=== PATIENT | female | born 1945 | race Caucasian/White ===

== ENCOUNTER 2018-05-30 22:01 | Inpatient (IN) ==
[2018-05-31] MEDS ORDERED: Acetaminophen 325 MG TABLET PO PRN (00:39)
[2018-05-31] MEDS ORDERED: Naloxone 0.4 MG/ML INJ IVP PRN (00:39)
[2018-05-31] MEDS ORDERED: Aspirin 325 MG TABLET PO ONE (00:47)
[2018-05-31] MEDS ORDERED: Furosemide 40 MG/4 ML VIAL IVP SCH (01:00)
[2018-05-31] MEDS: OXYCODONE Oral CONC 10 MG/0.5 ML ORAL.SYG SL PRN ×3 (01:12→21:37)
--- NOTE | 2018-05-31 01:21 | Internal Med History&Physical ---
Date of Encounter: 05/31/18 Time of Encounter: 01:04 Internal Medicine - H&P: HPI Chief complaint: Lower extremity edema/shortness of breath History of present illness: Ms. Moody is a 73 year old female with no reported past medical history who initially presented to [facility] due to lower extremity edema. Patient reports worsening lower extremity edema over the past week and a half which she states has never happened to her before. The swelling is primarily in her legs bilaterally. Patient otherwise attests that she is "healthy as a rock". She reports some improvement with elevation. Patient denies any previous history of heart disease. She does report some shortness of breath. Patient currently sleeps on one pillow but states that she does get a little short of breath and anxious when she lies down flat. She does report dyspnea with exertion. She is not on oxygen at home. With regard to her diet she states that she cannot eat food without salt. Patient denies any chest pain, fever, chills or cough. Denies any recent illness. Patient reports she does not take any medications except for aspirin occasionally. She has a significant past smoking history, having smoked a pack and a half for approximately 50 years. She states that she quit for about 11 years and then picked up smoking again 6 months ago. Patient denies any family history of heart disease. On arrival to [facility], patient was reportedly saturating in the mid 70s on room air. She was placed on 2 L nasal cannula with rapid improvement into the low 90s. Labs were notable for a normal white count with elevated troponin of 0.34. She was also found to have an elevated d-dimer of 747 and BNP of 1787. Chest x-ray showed enlarged cardiac silhouette No reports of fracture. CTA was recommended however patient refused due to apprehension with getting needlesticks. On my assessment patient was hemodynamically stable saturating in the mid 90s on 2 L, but would desaturate with conversation. She has notable bilateral lower extremity edema up to the distal thighs bilaterally. Past Med Surg Social Fam HX - Past Medical History Medical history: other Additional medical history: COPD Psychiatric history: anxiety - Past Surgical History Surgical History: other Additional surgical history: Adnoidectomy, Tonsilectomy - Social History Smoking Status: Current every day smoker Packs per day: 1 Smokeless Tobacco Status: No Alcohol use: none Drug use: none Internal Medicine - H&P: Meds Oxycodone HCl/Acetaminophen [Percocet 7.5-325 mg Tablet] 1 each PO Q6HR 02/05/15 [History] Allergy/AdvReac Type Severity Reaction Status Date / Time codeine Allergy Hives Verified 05/30/18 18:58 All Systems PM: A 10-system review of systems was performed and is negative for pertinent findings except as documented above in the HPI. - Constitutional Constitutional: no chills, no fever(s), no night sweats - EENT Eyes: no change in vision, no discharge, no pain, no photophobia Ears: no ear discharge, no ear pain, no tinnitus Nose, mouth and throat: no dysphagia, no nasal discharge, no neck pain, no sore throat - Cardiovascular Cardiovascular ROS IM: no chest pain, no diaphoresis, no dyspnea, no lightheadedness, no palpitations, no syncope - Respiratory Respiratory: no cough, no dyspnea, no wheezing, no excessive phlegm production - Gastrointestinal Gastrointestinal: no abdominal pain, no diarrhea, no hematemesis, no hematochezia, no melena, no nausea, no vomiting - Genitourinary Genitourinary: no change in urinary stream, no dysuria, no flank pain, no hematuria - Musculoskeletal Musculoskeletal ROS IM: no numbness, no tingling - Integumentary Integumentary IM: no rash, no unusual bruising - Neurological Neurological ROS: no confusion, no convulsions, no focal weakness, no numbness, no tingling, no tremor(s) - Hematologic/Lymphatic Hematologic/Lymphatic: no easy bruising - Constitutional Vitals: Temp Pulse Resp BP Pulse Ox 98.2 F 90 18 109/64 92 05/30/18 23:14 05/30/18 23:14 05/30/18 23:14 05/30/18 23:14 05/30/18 23:14 Exam: General: Alert and oriented 3 lying in bed in no acute distress Skin: One and 0.5 x 1.5 cm Ecchymotic lesion on the right dorsum of the hand over the first metacarpal joint. HEENT:EOM, pupils equal, round and reactive. Cardiovascular:Normal S1 & S2, no rubs, murmurs or gallops. Positive JVD up to the angle of the mandible. Pulse regular. Lungs: Lung sounds diminished with faint crackles bilaterally at the bases. Abdomen:Soft, non-tender, no rigidity. Extremities: 3+ pitting edema up to the knees with 1-2+ pitting edema on the distal thighs bilaterally. There is blanching erythema of the lower extremities particularly the feet. Neurological:Normal cognition and motor skills. Pulses:Carotid and radial pulses normal +2. Rest of the physical exam is non contributory - Assessment and plan (1) Bilateral lower extremity edema Current Visit: Yes Status: Acute Assessment and plan: Progressive worsening lower extremity edema over the past week and a half assoc iated with shortness of breath, dyspnea on exertion, and orthopnea. Found to have significant pitting edema up to the distal thighs. There is also blanching erythema of the distal extremities. Extremities are cool to the touch. Low suspicion for cellulitis. Found to have a BNP of 1787 as well as elevated troponin of 0.34. Concern for new onset heart failure given her constellation of symptoms. -We will start patient on Lasix 40 mg IV push twice a day. -We will obtain echocardiogram -Cardiology consult (2) Hypoxemia Current Visit: Yes Status: Acute Assessment and plan: Patient reportedly found to be in the mid 70s on initial assessment at [facility] on room air. She has a significant smoking history and has for the past 6 months resumed smoking. Patient responded well to 2 L nasal cannula coming up into the mid 90s. Diminished breath sounds on lung examination as well as bibasilar crackles. Positive JVD up to the angle of the mandible. She did have a d-dimer of 747. Chest x-ray showed enlarged cardiac silhouette and flattening of the diaphragms. Patient refused further CTA study to rule out PE due to her dislike of needles. Suspect her hypoxemia to be multifactorial and likely to be due to new onset CHF exacerbation as well as undiagnosed COPD. Patient had a significantly elevated BNP as well as evidence of chronic CO2 retention with an elevated bicarbonate of 39 and elevated hemoglobin. Patient currently stable from a respiratory standpoint on 2 L nasal cannula but does desaturate with conversation. -Continue O2 support -We will start patient on Lasix 40 mg IV twice a day along with strict I's and O's and daily weights. -We will start patient on scheduled breathing treatments with duo nebs and steroids -We will obtain echocardiogram -Cardiology consult -Patient will likely need pulmonary function testing. Consider pulmonary consult as well. (3) Elevated troponin Current Visit: Yes Status: Acute Assessment and plan: Found to have a initial troponin of 0.34. Patient denies any chest pain. Review of her EKG shows no ST changes however there are T-wave inversions in V1 and V2. No previous EKG to compare to. Patient is currently refusing a second troponin draw. I discussed at length the risks of not obtaining a subsequent troponin and that she may be having ongoing cardiac ischemia and possibly acute coronary syndrome in the setting of concern for new onset congestive heart failure necessitating anticoagulation. Patient continues to refuse stating that she hates being stuck by needles and if it is her time to go she is content with that. I urged her to reconsider and stated that we would not do the blood draw until 3 AM giving her time to think about it. She agreed and will give it some thought. -We will attempt to trend troponin. -Continue telemetry -We will obtain a second EKG check for any evolving changes. -We will obtain echocardiogram. -Cardiology consult. (4) Metabolic alkalosis Current Visit: Yes Status: Acute Assessment and plan: Metabolic alkalosis with a bicarbonate of 39. No reports of nausea or vomiting. Patient is not on any diuretics. Suspect chronic compensation in the setting of significant smoking history and possibly undiagnosed COPD. -We will monitor (5) Rib pain on left side Current Visit: Yes Status: Acute Assessment and plan: Patient reports mechanical fall 3 days ago with trauma to her left rib cage. Review of chest x-ray does not show any report of fracture. -Pain control (6) DVT prophylaxis Current Visit: Yes Status: Acute Assessment and plan: Subcutaneous heparin - Time Spent With Patient Total time spent is greater than 50% in coordination of care (as documented) at patient's floor/unit and/or counseling patient:
[2018-05-31] MEDS: Ipratropium/Albuterol Neb 3 ML IH SCH ×7 (03:47→23:52)
[2018-05-31] MEDS: MethylPREDNISolone 40 MG/ML VIAL IVP SCH ×4 (05:39→23:41)
[2018-05-31] MEDS ORDERED: Furosemide 40 MG TABLET PO SCH (08:00)
--- NOTE | 2018-05-31 08:03 | Event Note ---
<López Lentz - Last Filed: 05/31/18 15:19> Date of Encounter: 05/31/18 Pt admitted earlier today for bilateral lower extremity edema. Exam alert Comfortable Bilateral LE with edema and erythema Cardiology consult held at this time. Agree with other plan as above and in H&P <Oseas Molina - Last Filed: 05/31/18 16:06> Date of Encounter: 05/31/18 Time of Encounter: 08:15 Subjective: Patient seen and examined resting comfortably in bed. Patient is re sponding well to IV Lasix for lower extremity edema, dose was changed to Lasix 40mg PO daily due to worsening contraction alkalosis. UA was negative for proteinuria. Objective: General: Alert and oriented 3, no acute distress HEENT: EOMI, pupils equal, round and reactive. Cardiovascular: RRR, Normal S1 & S2, no rubs, murmurs or gallops. Lungs: Mild expiratory wheeze right upper lobe Abdomen:Soft, non-tender, no rigidity, normal bowel sounds. Extremities: 3+ pitting edema up to the knees with 1-2+ pitting edema on the distal thighs bilaterally, blanching erythema of the lower extremities below the calves. Neurological: Normal cognition and motor skills. Pulses: Carotid and radial pulses normal +2. Psych: Normal mood, normal affect Skin: Warm, blanching erythema of the lower extremities below the calves. Assessment and plan (1) Bilateral lower extremity edema DVT study, JARAD and lower extremity arterial study ordered due to concerns for blood clots and possible PAD. Patient is responding well to IV Lasix for lower extremity edema, dose was changed to Lasix 40mg PO daily due to worsening contraction alkalosis. UA was negative for proteinuria. Echo pending. CXR revealed enlarged cardiac silhouette with no convincing acute cardiopulmonary abnormality. Monitor input and output Heparin subcutaneous TID (2) Elevated troponin Serial troponins 0.36 --> 0.34 -->0.33. Patient denies chest pain. Cardiology consulted deferred. We will await echocardiogram results. (3) Tobacco dependence Continue Duonebs for wheezing. 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 Tobacco cessation discussed. Nicotine patch ordered. (4) DVT prophylaxis Heparin subcutaneous TID
[2018-05-31 09:12] LABS: Basophils # 0.1 K/mcL (0.0-0.2); Eosinophils # 0.1 K/mcL (0.0-0.6); Eosinophils % 1.2 %; Hematocrit 52.6 % (35.3-44.9); Hemoglobin 15.8 g/dL (11.5-15.4); Immature Granulocytes % 0.3 % (0-4); Lymphocytes # 1.2 K/mcL (0.6-4.6); Lymphocytes % 13.6 %; Mean Corpuscular Volume 83.4 fL (83.0-100.0); Mean Platelet Volume 9.9 fL (9.4-12.4); Monocytes # 0.9 K/mcL (0.0-1.3); Monocytes % 9.4 %; Neutrophils # 6.8 K/mcL (1.6-8.9); Platelet Count 186 K/mcL (140-400); Red Blood Count 6.31 M/mcL (3.82-4.97); Red Cell Distribution Width 20.2 % (11.5-14.5); Segmented Neutrophils % 74.5 %
--- NOTE | 2018-05-31 09:12 | Cardiology Consult Note ---
Date of Encounter: 05/31/18 Time of Encounter: 09:10 Assessment and Plan (1) Bilateral lower extremity edema Current Visit: Yes Status: Acute Likely CHF, pending TTE to evaluate Diuresis per primary team (2) Elevated troponin Current Visit: Yes Status: Acute Likely demand ischemia from CHF vs PE but patient declines CTA, she continues on 2L nasal cannula to maintain saturations in the 90s Will evaluate for CHF with TTE Trops not dynamic at 0.36, 0.34, and 0.33 Discussion w patient/family: The assessment and plan as outlined above was discussed with the patient and/or family members who expressed understanding and agreement. All questions were answered. Thank you for involving us in the care of your patient. Please call with any questions. History of Present Illness Consult date: 05/31/18 Consult reason: elevated troponin History of present illness: Ms. Moody is a 73 year old female with no known past medical history who presented to [facility] with complaints of bilateral lower extremity swelling. She states the symptoms have been worsening for approximately one week. She states that over the past two weeks she has had increasingly worsening of her shortness of breath and fatigue. She admits to orthopnea and no longer is able to lay flat to sleep. She has not been active and her has been caring for her daily needs. She notes a long history of smoking but denies any history of heart disease or COPD. She denies any chest pain at rest or with exertion. Past Med Surg Social Fam HX - Past Medical History Attestation: Yes The following information was validated with the patient. Source: patient Medical history: other Additional medical history: COPD Psychiatric history: anxiety - Past Surgical History Surgical History: other Additional surgical history: Adnoidectomy, Tonsilectomy - Social History Smoking Status: Current every day smoker Packs per day: 1 Smokeless Tobacco Status: No Alcohol use: none Drug use: none Medications and Allergies Oxycodone HCl/Acetaminophen [Percocet 7.5-325 mg Tablet] 1 each PO Q6HR 02/05/15 [History] Allergy/AdvReac Type Severity Reaction Status Date / Time codeine Allergy Hives Verified 05/30/18 18:58 All Systems Review: The remainder of the systems were reviewed and are negative - Constitutional Constitutional: fatigue, no fever(s) - Cardiovascular Cardiovascular: dyspnea on exertion, leg edema, orthopnea, no chest pain at rest , no chest pain with exertion, no diaphoresis, no irregular heart rhythm - Respiratory Respiratory: dyspnea, no cough - Gastrointestinal Gastrointestinal: no abdominal pain - Genitourinary Genitourinary: no dysuria - Musculoskeletal Musculoskeletal: no abnormal gait - Integumentary Integumentary: no erythema, no rash - Neurological Neurological: no abnormal speech, no dizziness Physical Examination Vital Signs, Last 4 Hours Temp Pulse Resp BP Pulse Ox 05/31/18 07:25 16 97 05/31/18 06:53 97.9 F 86 16 113/78 92 General: Conversant, No Apparent Distress HEENT: Atraumatic, Normocephaly, Mucus Membranes Moist Neck: Normal carotid pulses Cardiac: Reg Rate and Rhythm, Normal S1 and S2, No Murmur Lungs: Other (end expiratory wheezing bilaterally) Neuro: Alert and responsive, No focal deficits noted Abdomen: Soft, Non-Tender Skin: No rashes noted on visualized skin Musculoskeletal: No Chest Wall Tenderness Extremities: No Clubbing, No Cyanosis, Normal Pulses, Other (3+ pitting edema to mid thigh bilaterally) Results 05/31/18 08:50 05/31/18 08:50 - Imaging and Cardiology Chest Xray: report reviewed, image reviewed Echo: pending - EKG Interpretation EKG results cardiology: personally reviewed, normal ECG, sinus rhythm Consult Discharge Plan - Plan Referrals: Kandy Burgos, MEDICAL REFERRAL COORDINATOR [Primary Care Provider] -
[2018-05-31] MEDS: *HR* Heparin 5,000 UNIT/ML VIAL SQ SCH ×3 (09:13→23:39)
[2018-05-31 09:48] LABS: Alanine Aminotransferase 10 Units/L (7-52); Albumin 3.3 g/dL (3.5-5.7); Albumin/Globulin Ratio 1.2 (1.1-2.2); Alkaline Phosphatase 77 Units/L (34-104); Aspartate Amino Transferase 18 Units/L (13-39); BUN/Creatinine Ratio 28 (6-26); Bilirubin,Total 1.2 mg/dL (0.3-1.0); Blood Urea Nitrogen 19 mg/dL (8-23); Calcium 8.9 mg/dL (8.6-10.3); Carbon Dioxide 42 mEq/L (23-29); Chloride 94 mEq/L (98-107); Chol/HDL Ratio 3.1 (0-4.9); Cholesterol 129 mg/dL (< 200); Globulin 2.7 g/dL (2.4-3.5); Glucose 88 mg/dL (70-105); HDL Cholesterol 41 mg/dL (40-59); LDL Cholesterol,Calculated 76 mg/dL (0-99); Magnesium 1.8 mg/dL (1.6-2.6); Osmolality,Calculated 288 (280-300); Potassium 4.4 mEq/L (3.5-5.1); Sodium 138 mEq/L (136-145); Triglycerides 61 mg/dL (< 150); Troponin I 0.33 ng/mL (< 0.04); eGFR For Non-African Americans > 60 (> 60)
[2018-05-31 11:56] LABS: Bilirubin,Urine Negative (Negative); Blood,Urine Negative (Negative); Clarity,Urine Clear (Clear); Color,Urine Yellow (Yellow); Glucose,Urine (UA) Normal (Normal); Ketones,Urine Negative (Negative); Leukocyte Esterase,Urine Negative (Negative); Nitrite,Urine Negative (Negative); Protein,Urine Negative (Neg-Trace); Specific Gravity,Urine 1.012 (1.010-1.025); Urobilinogen,Urine Normal (Normal)
[2018-05-31] MEDS: Nicotine 7 MG PATCH.TD24 TD SCH (11:59)
[2018-06-01] MEDS: OXYCODONE Oral CONC 10 MG/0.5 ML ORAL.SYG SL PRN ×2 (01:40→10:06)
[2018-06-01 03:02] LABS: Basophils % 0.1 %; Hematocrit 45.4 % (35.3-44.9); Immature Granulocytes % 0.4 % (0-4); Immature Platelets 4.2 % (1.1-6.1); Lymphocytes # 0.1 K/mcL (0.6-4.6); Lymphocytes % 1.9 %; Mean Corpuscular HGB Conc 29.5 g/dL (31.6-35.5); Mean Corpuscular Volume 84.7 fL (83.0-100.0); Monocytes % 0.4 %; Neutrophils # 6.6 K/mcL (1.6-8.9); Platelet Count 181 K/mcL (140-400); Red Blood Count 5.36 M/mcL (3.82-4.97); Red Cell Distribution Width 19.2 % (11.5-14.5); Segmented Neutrophils % 97.2 %
[2018-06-01 03:03] LABS: Hemoglobin 13.4 g/dL (11.5-15.4)
[2018-06-01 03:21] LABS: Platelet Estimate Normal (Normal)
[2018-06-01 03:28] LABS: BUN/Creatinine Ratio 25 (6-26); Blood Urea Nitrogen 21 mg/dL (8-23); Carbon Dioxide 44 mEq/L (23-29); Chloride 91 mEq/L (98-107); Glucose 170 mg/dL (70-105); Osmolality,Calculated 291 (280-300); Potassium 4.6 mEq/L (3.5-5.1); Sodium 137 mEq/L (136-145); eGFR For Non-African Americans > 60 (> 60)
[2018-06-01] MEDS: Ipratropium/Albuterol Neb 3 ML IH SCH ×5 (03:53→19:48)
[2018-06-01] MEDS: MethylPREDNISolone 40 MG/ML VIAL IVP SCH ×2 (05:36→18:15)
--- NOTE | 2018-06-01 07:44 | Internal Med Progress Note ---
<Oseas Molina - Last Filed: 06/01/18 11:36> Hospitalist Progress Note - Encounter Date of Encounter: 06/01/18 Time of Encounter: 08:50 - Subjective Interval History: Patient seen and examined resting comfortably in bed. BMP indicates worsening CO2 elevation. Patient refused ABG this morning, VBG ordered. She continues to have lower extremity swelling and complains of chest wall pain s/p fall. - Exam Vitals: Temp Pulse Resp BP Pulse Ox 97.7 F 73 18 113/62 96 06/01/18 07:20 06/01/18 07:20 06/01/18 07:20 06/01/18 07:20 06/01/18 07:24 Exam: General: Alert and oriented 3, no acute distress HEENT: EOMI, pupils equal, round and reactive. Cardiovascular: RRR, Normal S1 & S2, no rubs, murmurs or gallops. Positive reproducible anterior and posterior chest wall pain with palpation Lungs: diminished breath sounds Abdomen:Soft, non-tender, no rigidity, normal bowel sounds. Extremities: 3+ pitting edema up to the knees with 1-2+ pitting edema on the distal thighs bilaterally, blanching erythema of the lower extremities below the calves. Neurological: Normal cognition and motor skills. Pulses: Carotid and radial pulses normal +2. Psych: Normal mood, normal affect Skin: Warm, blanching erythema of the lower extremities below the calves. - Assessment and Plan (1) Bilateral lower extremity edema Current Visit: Yes Status: Acute Assessment and Plan: Patient responded well to IV Lasix with decreased lower extremity edema, continue Lasix 40mg IV as needed, monitor for worsening contraction alkalosis. UA was negative for proteinuria. DVT study negative for blood clots. JARAD WNL Echo LVEF 60%, Mild left ventricular diastolic dysfunction, RV size is mildly dilated with mild hypokinesis, Mild-moderate tricuspid regurgitation, Mild pulmonary hypertension. There is a trivial pericardial effusion present. CXR revealed enlarged cardiac silhouette with no convincing acute cardiopulmonary abnormality. Monitor input and output Niko wright ordered (2) Elevated troponin Current Visit: Yes Status: Acute Assessment and Plan: Serial troponins 0.36 --> 0.34 -->0.33. Patient reports chest wall pain s/p fall. Cardiology consult deferred. Echo LVEF 60%, Mild left ventricular diastolic dysfunction, RV size is mildly dilated with mild hypokinesis, Mild-moderate tricuspid regurgitation, Mild pulmonary hypertension. There is a trivial pericardial effusion present. (3) Rib pain on left side Current Visit: Yes Status: Acute Assessment and Plan: Patient reports mechanical fall 3 days ago with trauma to her left rib cage. Review of chest x-ray does not show any report of fracture. Continue pain control (4) Tobacco dependence Current Visit: Yes Status: Chronic Assessment and Plan: Continue Duonebs for wheezing. 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 Tobacco cessation discussed. Nicotine patch ordered. (5) Hypercapnia Current Visit: Yes Status: Acute Assessment and Plan: BMP indicates worsening CO2 elevation of 44. No reports of nausea or vomiting. Patient was not on any diuretics at home. Patient refused ABG this morning, she will need an ABG for home BiPap qualification. VBG showed pCO2 81, patient started on BiPap. Suspect chronic hypercapnia in the setting of significant smoking history and possibly undiagnosed COPD. Continue monitoring DVT Prophylaxis: Heparin subcutaneous TID - Time Spent with Patient Total time spent is greater than 50% in coordination of care (as documented) at patient's floor/unit and/or counseling patient: Internal Medicine: Result - Labs CBC & Chem 7: 06/01/18 02:55 06/01/18 02:55 Labs: Short CBC 05/31/18 06/01/18 Range/Units 08:50 02:55 WBC 9.1 6.8 (4.3-11.1) K/mcL Hgb 15.8 H 13.4 D (11.5-15.4) g/dL Hct 52.6 H 45.4 H (35.3-44.9) % Plt Count 186 181 (140-400) K/mcL Neutrophils # 6.8 6.6 (1.6-8.9) K/mcL BMP 05/31/18 06/01/18 08:50 02:55 Sodium 138 137 Potassium 4.4 4.6 Chloride 94 L 91 L Carbon Dioxide 42 H* 44 H* BUN 19 21 Creatinine 0.67 0.83 Glucose 88 170 H Calcium 8.9 8.0 L Cardiac Enzymes 05/31/18 Range/Units 08:50 Troponin I 0.33 H* (< 0.04) ng/mL Liver Function 05/31/18 Range/Units 08:50 Total Bilirubin 1.2 H (0.3-1.0) mg/dL AST 18 (13-39) Units/L ALT 10 (7-52) Units/L Alkaline Phosphatase 77 (34-104) Units/L Albumin 3.3 L (3.5-5.7) g/dL Urine 05/31/18 Range/Units 11:37 Urine Color Yellow (Yellow) Urine Clarity Clear (Clear) Urine pH 6.0 (5.0-8.0) pH Units Ur Specific [employer] 1.012 (1.010-1.025) Urine Protein Negative (Neg-Trace) mg/dL Urine Glucose (UA) Normal (Normal) mg/dL Consult Discharge Plan - Plan Referrals: Kandy Burgos CNP [Primary Care Provider] - <López Lentz - Last Filed: 06/01/18 14:47> Hospitalist Progress Note - Encounter Date of Encounter: 06/01/18 - Exam Vitals: Temp Pulse Resp BP Pulse Ox 89 F L 84 13 110/62 93 06/01/18 11:03 06/01/18 11:03 06/01/18 11:27 06/01/18 11:03 06/01/18 11:27 - Assessment and Plan (1) Diastolic heart failure Current Visit: Yes Status: Suspected (2) Respiratory failure Current Visit: Yes Status: Suspected (3) Bilateral lower extremity edema Current Visit: Yes Status: Acute (4) Elevated troponin Current Visit: Yes Status: Acute (5) Rib pain on left side Current Visit: Yes Status: Acute (6) Tobacco dependence Current Visit: Yes Status: Chronic (7) Hypercapnia Current Visit: Yes Status: Acute (8) Tobacco abuse Current Visit: Yes Status: Chronic - Time Spent with Patient Total time spent is greater than 50% in coordination of care (as documented) at patient's floor/unit and/or counseling patient: Internal Medicine: Result - Labs CBC & Chem 7: 06/01/18 02:55 06/01/18 02:55 Labs: Short CBC 06/01/18 Range/Units 02:55 WBC 6.8 (4.3-11.1) K/mcL Hgb 13.4 D (11.5-15.4) g/dL Hct 45.4 H (35.3-44.9) % Plt Count 181 (140-400) K/mcL Neutrophils # 6.6 (1.6-8.9) K/mcL BMP 06/01/18 02:55 Sodium 137 Potassium 4.6 Chloride 91 L Carbon Dioxide 44 H* BUN 21 Creatinine 0.83 Glucose 170 H Calcium 8.0 L - Impressions Impressions Echocardiogram 05/31/18 00:57 Impressions: LVEF 60%. Mild left ventricular diastolic dysfunction. RV size is mildly dilated with mild hypokinesis. Mild-moderate tricuspid regurgitation. Mild pulmonary hypertension. There is a trivial pericardial effusion present. There is no echocardiographic evidence of tamponade. Left Ventricular Wall Motion: Rest Echo Findings All wall segments showed normal motion. Findings: Study Quality * Technically adequate exam. ECG Findings * Normal sinus rhythm. Left Ventricle * LVEF 60%. * Normal LV chamber size, wall thickness and function. * Mild left ventricular diastolic dysfunction. Right Ventricle * RV size is mildly dilated with mild hypokinesis. Left Atrium * Normal left atrial size. Right Atrium * Mildly dilated right atrium. Mitral Valve * Normal mitral valve structure. * No mitral stenosis. * Trace mitral regurgitation. Aortic Valve * No aortic regurgitation. * Trileaflet aortic valve. * No aortic stenosis. Tricuspid Valve * Normal tricuspid valve structure. * Mild-moderate tricuspid regurgitation. * Estimated RA pressure is 20 mmHg. * Estimated RVSP is 47 mmHg. * Mild pulmonary hypertension. Pulmonic Valve * Pulmonic valve is not well visualized. * No pulmonic stenosis. * No pulmonic regurgitation. Pulmonary Artery * Pulmonary artery not well visualized. Aorta * Normally sized aortic root. Pericardium * There is a trivial pericardial effusion present. * There is no echocardiographic evidence of tamponade. Interatrial Septum * No evidence of PFO by color Doppler. * Lipomatous interatrial septum. IVC * The IVC is dilated. * < 50% respiratory change. - Attending Attestation I examined this patient and my medical decision-making was reviewed with the Resident Physician on 06/01/18. I agree with the documented findings, disposition and treatment plan as described except to the extent set forth below. Ms Moody is currently in observation for edema most likely related to diastolic heart failure. She remains moderate to high risk. Ms Moody is resting comfortably. No fever or chills. Just had NIKO hose applied. Still with a lot of edema. Reproducible chest pain. Desaturates with movement while off oxygen. Exam Alert Comfortable at rest in bed Mucus membranes dry Heart reg and distant Some rhonchi bilaterally. No rales Abd soft and nontender Diffuse edema noted - 3+ I/P 1. Acute exac presumed diastolic heart failure - diuresing. NIKO wright applied. Check thyroid function. 2. Probable chronic hypoxic and hypercarbic resp failure - suspect due to COPD. Pt refuses ABG. Will most likely need home oxygen. 3. Smoker Further diagnoses and plan as above. <López Lentz - Last Filed: 06/01/18 14:47> (1) Diastolic heart failure Qualifiers: Heart failure chronicity: acute on chronic Qualified Code(s): I50.33 - Acute on chronic diastolic (congestive) heart failure (2) Respiratory failure Qualifiers: Chronicity: acute on chronic Respiratory failure complication: hypoxia and hypercapnia Qualified Code(s): J96.21 - Acute and chronic respiratory failure with hypoxia; J96.22 - Acute and chronic respiratory failure with hypercapnia
[2018-06-01] MEDS ORDERED: Furosemide Oral Soln 40 MG/4 ML UDC PO SCH (09:00)
[2018-06-01] MEDS ORDERED: Furosemide 40 MG/4 ML VIAL IVP ONE (09:11)
[2018-06-01] MEDS: *HR* Heparin 5,000 UNIT/ML VIAL SQ SCH ×3 (09:58→23:35)
[2018-06-01] MEDS: Nicotine 7 MG PATCH.TD24 TD SCH (09:58)
[2018-06-01 10:34] LABS: VBG HCO3 42 mEq/L (21-27); VBG PCO2 81 mmHg (41-51); VBG PH 7.32 pH Units (7.32-7.42); VBG PO2 118 mmHg (25-50)
[2018-06-01] MEDS ORDERED: hydrOXYzine pamoate 25 MG CAPSULE PO PRN ×2 (13:15→15:39)
[2018-06-01] MEDS ORDERED: Furosemide 40 MG TABLET PO SCH (16:00)
[2018-06-01] MEDS ORDERED: Isovue-370 500 ML BOTTLE IVP ONE (16:16)
--- NOTE | 2018-06-01 17:26 | Electrocardiograph Report ---
[place] [address] Test Date: 2018-05-31 Pat Name: Kandy Moody Department: 111 Room: 2NE19 Gender: F Medical Insurance Verifier: RAW : [id number] Requested By: Mayra Huang Order Number: [id number] Reading MD: Mickie Paige Measurements Intervals [place] Rate: 73 P: 74 HI: 150 QRS: 152 QRSD: 82 T: 12 QT: 385 QTc: 410 Interpretive Statements SINUS RHYTHM LEFT ATRIAL ENLARGEMENT PATTERN CONSISTENT WITH PULMONARY DISEASE RIGHT VENTRICULAR HYPERTROPHY MODERATE ST DEPRESSION Electronically Signed On 06-01-2018 17:25:04 EST by Mickie Paige
[2018-06-02] MEDS: Ipratropium/Albuterol Neb 3 ML IH SCH ×7 (00:01→23:39)
[2018-06-02] MEDS ORDERED: Bisacodyl 10 MG RECTAL SUPPOSITORY RC ONE (02:58)
[2018-06-02] MEDS: MethylPREDNISolone 40 MG/ML VIAL IVP SCH (05:13)
[2018-06-02 05:27] LABS: Hematocrit 46.3 % (35.3-44.9); Hemoglobin 13.8 g/dL (11.5-15.4); Mean Corpuscular HGB Conc 29.8 g/dL (31.6-35.5); Mean Corpuscular Hemoglobin 24.7 pg (28.0-33.3); Mean Platelet Volume 10.1 fL (9.4-12.4); Platelet Count 245 K/mcL (140-400); Red Blood Count 5.58 M/mcL (3.82-4.97); Red Cell Distribution Width 19.7 % (11.5-14.5)
[2018-06-02 05:50] LABS: BUN/Creatinine Ratio 32 (6-26); Blood Urea Nitrogen 26 mg/dL (8-23); Calcium 8.6 mg/dL (8.6-10.3); Carbon Dioxide > 45 mEq/L (23-29); Chloride 89 mEq/L (98-107); Glucose 136 mg/dL (70-105); Osmolality,Calculated 291 (280-300); Potassium 4.5 mEq/L (3.5-5.1); Sodium 137 mEq/L (136-145); eGFR For Non-African Americans > 60 (> 60)
[2018-06-02] MEDS: OXYCODONE Oral CONC 10 MG/0.5 ML ORAL.SYG SL PRN (06:54)
[2018-06-02] MEDS: *HR* Heparin 5,000 UNIT/ML VIAL SQ SCH ×2 (08:27→15:25)
[2018-06-02] MEDS: Nicotine 7 MG PATCH.TD24 TD SCH (09:31)
[2018-06-02] MEDS: predniSONE 20 MG TABLET PO SCH (09:31)
--- NOTE | 2018-06-02 09:50 | Internal Med Progress Note ---
Addendum entered and electronically signed by Oseas Molina DO 06/02/18 16:24: - Updated Assessment and Plan (1) Bilateral lower extremity edema Current Visit: Yes Status: Acute Assessment and Plan: Patient was on IV Lasix for lower extremity edema, Lasix was discontinued due to worsening contraction alkalosis. UA was negative for proteinuria. DVT study negative for blood clots. JARAD WNL Echo LVEF 60%, Mild left ventricular diastolic dysfunction, RV size is mildly dilated with mild hypokinesis, Mild-moderate tricuspid regurgitation, Mild pulmonary hypertension. There is a trivial pericardial effusion present. CXR revealed enlarged cardiac silhouette with no convincing acute cardiopulmonary abnormality. CTA chest revealed no evidence of pulmonary embolism and findings of fluid overload including small to moderate right pleural effusion, small left pleural effusion, small pericardial effusion, and anasarca. Patient given one dose of Acetazolamide today. Reevaluate labs in morning. Monitor input and output Continue Art hose (2) COPD Current Visit: Yes Status: Chronic Assessment and Plan: CT chest revealed moderate emphysema. Tiny noncalcified nodules measuring less than 4 mm are nonspecific and could be related to chronic granulomatous disease. Consider follow-up low-dose chest CT in 12 months. Continue bronchodilators (3) Hypercapnia Current Visit: Yes Status: Acute Assessment and Plan: BMP indicates worsening CO2 elevation of > 45. No reports of nausea or vomiting. Patient was not on any diuretics at home. Patient refused ABG, she will need an ABG for home BiPap qualification. VBG showed pCO2 81, encourage BiPap. Suspect chronic hypercapnia in the setting of significant smoking history and possibly undiagnosed COPD. Continue monitoring (4) Elevated troponin Current Visit: Yes Status: Acute Assessment and Plan: Serial troponins 0.36 --> 0.34 -->0.33. Patient reports chest wall pain s/p fall. Cardiology consult deferred. Echo LVEF 60%, Mild left ventricular diastolic dysfunction, RV size is mildly dilated with mild hypokinesis, Mild-moderate tricuspid regurgitation, Mild pulmonary hypertension. There is a trivial pericardial effusion present. (5) Rib pain on left side Current Visit: Yes Status: Acute Assessment and Plan: Patient reports mechanical fall 3 prior to arrival with trauma to her left rib cage. Review of chest x-ray does not show any report of fracture. Continue pain control (6) Tobacco dependence Current Visit: Yes Status: Chronic Assessment and Plan: Continue Duonebs for wheezing. 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 Tobacco cessation discussed. Nicotine patch ordered. DVT Prophylaxis: Heparin subcutaneous TID Original Note: <Oseas Molina - Last Filed: 06/02/18 15:08> Hospitalist Progress Note - Encounter Date of Encounter: 06/02/18 Time of Encounter: 09:30 - Subjective Interval History: Patient seen and examined resting comfortably in bed. BMP indicates worsening CO2 elevation. Patient refused ABG again today, CT chest ordered. She continues to have lower extremity swelling and unchanged chest wall pain s/p fall. Compression hose are in place. She continues to require 3 L supplemental oxygen . - Exam Vitals: Temp Pulse Resp BP Pulse Ox 98.0 F 100 16 132/78 93 06/02/18 06:46 06/02/18 06:46 06/02/18 06:46 06/02/18 06:46 06/02/18 06:46 Exam: General: Alert and oriented 3, no acute distress HEENT: EOMI, pupils equal, round and reactive. Cardiovascular: RRR, Normal S1 & S2, no rubs, murmurs or gallops. Positive reproducible anterior and posterior chest wall pain with palpation Lungs: diminished bibasilar breath sounds Abdomen:Soft, non-tender, no rigidity, normal bowel sounds. Extremities: 2+ pitting edema up to the knees with 1+ pitting edema on the distal thighs bilaterally, blanching erythema of the lower extremities below the calves. Compression hose in place Neurological: Normal cognition and motor skills. Pulses: Carotid and radial pulses normal +2. Psych: Normal mood, normal affect Skin: Warm, decreased blanching erythema of the lower extremities below the calves. - Assessment and Plan (1) Bilateral lower extremity edema Current Visit: Yes Status: Acute Assessment and Plan: Patient was on IV Lasix for lower extremity edema, Lasix was discontinued due to worsening contraction alkalosis. UA was negative for proteinuria. DVT study negative for blood clots. JARAD WNL Echo LVEF 60%, Mild left ventricular diastolic dysfunction, RV size is mildly dilated with mild hypokinesis, Mild-moderate tricuspid regurgitation, Mild pulmonary hypertension. There is a trivial pericardial effusion present. CXR revealed enlarged cardiac silhouette with no convincing acute cardi opulmonary abnormality. Monitor input and output Continue Art hose (2) Elevated troponin Current Visit: Yes Status: Acute (3) Rib pain on left side Current Visit: Yes Status: Acute (4) Tobacco dependence Current Visit: Yes Status: Chronic (5) Hypercapnia Current Visit: Yes Status: Acute (6) Diastolic heart failure Current Visit: Yes Status: Suspected (7) Respiratory failure Current Visit: Yes Status: Suspected (8) Tobacco abuse Current Visit: Yes Status: Chronic - Time Spent with Patient Total time spent is greater than 50% in coordination of care (as documented) at patient's floor/unit and/or counseling patient: Internal Medicine: Result - Labs CBC & Chem 7: 06/02/18 05:10 06/02/18 05:10 Labs: Short CBC 06/02/18 Range/Units 05:10 WBC 14.8 H D (4.3-11.1) K/mcL Hgb 13.8 (11.5-15.4) g/dL Hct 46.3 H (35.3-44.9) % Plt Count 245 (140-400) K/mcL BMP 06/02/18 05:10 Sodium 137 Potassium 4.5 Chloride 89 L Carbon Dioxide > 45 H* BUN 26 H Creatinine 0.82 Glucose 136 H Calcium 8.6 - Impressions Impressions Echocardiogram 05/31/18 00:57 Impressions: LVEF 60%. Mild left ventricular diastolic dysfunction. RV size is mildly dilated with mild hypokinesis. Mild-moderate tricuspid regurgitation. Mild pulmonary hypertension. There is a trivial pericardial effusion present. There is no echocardiographic evidence of tamponade. Left Ventricular Wall Motion: Rest Echo Findings All wall segments showed normal motion. Findings: Study Quality * Technically adequate exam. ECG Findings * Normal sinus rhythm. Left Ventricle * LVEF 60%. * Normal LV chamber size, wall thickness and function. * Mild left ventricular diastolic dysfunction. Right Ventricle * RV size is mildly dilated with mild hypokinesis. Left Atrium * Normal left atrial size. Right Atrium * Mildly dilated right atrium. Mitral Valve * Normal mitral valve structure. * No mitral stenosis. * Trace mitral regurgitation. Aortic Valve * No aortic regurgitation. * Trileaflet aortic valve. * No aortic stenosis. Tricuspid Valve * Normal tricuspid valve structure. * Mild-moderate tricuspid regurgitation. * Estimated RA pressure is 20 mmHg. * Estimated RVSP is 47 mmHg. * Mild pulmonary hypertension. Pulmonic Valve * Pulmonic valve is not well visualized. * No pulmonic stenosis. * No pulmonic regurgitation. Pulmonary Artery * Pulmonary artery not well visualized. Aorta * Normally sized aortic root. Pericardium * There is a trivial pericardial effusion present. * There is no echocardiographic evidence of tamponade. Interatrial Septum * No evidence of PFO by color Doppler. * Lipomatous interatrial septum. IVC * The IVC is dilated. * < 50% respiratory change. - VTE Documentation of Mechanical Device: Intermittent pneumatic compression device Consult Discharge Plan - Plan Referrals: Kandy Burgos CNP [Primary Care Provider] - <Maria Luisa Donaldson - Last Filed: 06/02/18 15:47> Hospitalist Progress Note - Encounter Date of Encounter: 06/02/18 Time of Encounter: 15:44 - Exam Vitals: Temp Pulse Resp BP Pulse Ox 97.5 F L 90 16 119/65 94 06/02/18 15:36 06/02/18 15:36 06/02/18 15:36 06/02/18 15:36 06/02/18 15:36 - Assessment and Plan (1) Bilateral lower extremity edema Current Visit: Yes Status: Acute (2) Elevated troponin Current Visit: Yes Status: Acute (3) Rib pain on left side Current Visit: Yes Status: Acute (4) Tobacco dependence Current Visit: Yes Status: Chronic (5) Hypercapnia Current Visit: Yes Status: Acute (6) Diastolic heart failure Current Visit: Yes Status: Suspected (7) Respiratory failure Current Visit: Yes Status: Suspected (8) Tobacco abuse Current Visit: Yes Status: Chronic - Time Spent with Patient Total time spent is greater than 50% in coordination of care (as documented) at patient's floor/unit and/or counseling patient: Internal Medicine: Result - Labs CBC & Chem 7: 06/02/18 05:10 06/02/18 05:10 Labs: Short CBC 06/02/18 Range/Units 05:10 WBC 14.8 H D (4.3-11.1) K/mcL Hgb 13.8 (11.5-15.4) g/dL Hct 46.3 H (35.3-44.9) % Plt Count 245 (140-400) K/mcL BMP 06/02/18 05:10 Sodium 137 Potassium 4.5 Chloride 89 L Carbon Dioxide > 45 H* BUN 26 H Creatinine 0.82 Glucose 136 H Calcium 8.6 - Impressions Impressions Chest CTA 06/02/18 10:00 IMPRESSION: 1. No evidence of pulmonary embolism. 2. Findings of fluid overload including small to moderate right pleural effusion, small left pleural effusion, small pericardial effusion, and anasarca. 3. Moderate emphysema. 4. Tiny noncalcified nodules measuring less than 4 mm are nonspecific and could be related to chronic granulomatous disease. Consider follow-up low-dose chest CT in 12 months per the guidelines below. RECOMMENDATIONS: Fleischner Society guidelines for follow-up and management of incidentally detected pulmonary nodules: Multiple Solid Nodules: Nodule size less than 6 mm In a low-risk patient, no routine follow-up. In a high-risk patient, optional CT at 12 months. - Low risk patients include individuals with minimal or absent history of smoking and other known risk factors. - High risk patients include individuals with a history or smoking or known risk factors. Radiology 2017 http://pubs.rsna.org/doi/full/10.1148/radiol.5679941862 D/ / Hernandez Yuen MD / Hernandez Yuen MD Interpreting Provider: Hernandez Yuen MD - Attending Attestation I saw evaluated and examined this patient and my medical decision-making was reviewed with the Resident Physician, Oseas Molina. I agree with the documented findings, disposition and treatment plan as described except to any changes set forth below. We independently had [id number] contact with the patient. Patient doing better at this time. She reports that her breathing is improving. Denies any fevers or chills. Also reports that her lower extremity swelling has improved. No chest pain or palpitations. No fever reported overnight. On exam, patient is awake and alert. Decreased breath sounds at both bases. Bilateral pedal edema present. Abdomen is soft, nontender. S1 and S2 are normal. Acute hypoxic/hypercapnic respiratory failure: Continue O2 supplementation. Patient will most likely need home oxygen. Will evaluate for this. COPD: Patient's CT scan of the chest does show emphysema bilaterally. Likely contributing to her hypoxia and hypercapnia. Taper steroids. Continue bronchodilators. Bilateral lower extremity edema: Patient has mild left lower diastolic dysfunction. Was receiving Lasix but developed contraction alkalosis. As such Lasix has been held. We will give patient one dose of acetazolamide today. Reevaluate labs in morning. Diastolic heart failure: Negative fluid balance. Continue fluid restriction. DVT prophylaxis with subcutaneous heparin. Moderate risk for complications. <Oseas Molina - Last Filed: 06/02/18 15:08> (6) Diastolic heart failure Qualifiers: Heart failure chronicity: acute on chronic Qualified Code(s): I50.33 - Acute on chronic diastolic (congestive) heart failure (7) Respiratory failure Qualifiers: Chronicity: acute on chronic Respiratory failure complication: hypoxia and hypercapnia Qualified Code(s): J96.21 - Acute and chronic respiratory failure with hypoxia; J96.22 - Acute and chronic respiratory failure with hypercapnia <Maria Luisa Donaldson - Last Filed: 06/02/18 15:47> (6) Diastolic heart failure Qualifiers: Heart failure chronicity: acute on chronic Qualified Code(s): I50.33 - Acute on chronic diastolic (congestive) heart failure (7) Respiratory failure Qualifiers: Chronicity: acute on chronic Respiratory failure complication: hypoxia and hy percapnia Qualified Code(s): J96.21 - Acute and chronic respiratory failure with hypoxia; J96.22 - Acute and chronic respiratory failure with hypercapnia
[2018-06-02] MEDS ORDERED: ALPRAZolam 0.5 MG TABLET PO ONE (21:02)
[2018-06-03] MEDS: Ipratropium/Albuterol Neb 3 ML IH SCH ×4 (03:40→16:42)
[2018-06-03 04:55] LABS: Basophils % 0.1 %; Eosinophils % 0.1 %; Hematocrit 42.6 % (35.3-44.9); Hemoglobin 12.4 g/dL (11.5-15.4); Immature Granulocytes % 0.5 % (0-4); Lymphocytes # 0.6 K/mcL (0.6-4.6); Lymphocytes % 5.1 %; Mean Corpuscular HGB Conc 29.1 g/dL (31.6-35.5); Mean Corpuscular Hemoglobin 24.2 pg (28.0-33.3); Mean Corpuscular Volume 83.2 fL (83.0-100.0); Mean Platelet Volume 9.5 fL (9.4-12.4); Monocytes # 0.8 K/mcL (0.0-1.3); Monocytes % 6.5 %; Neutrophils # 10.3 K/mcL (1.6-8.9); Platelet Count 207 K/mcL (140-400); Red Blood Count 5.12 M/mcL (3.82-4.97); Red Cell Distribution Width 19.9 % (11.5-14.5); Segmented Neutrophils % 87.7 %
--- NOTE | 2018-06-03 06:38 | Internal Med Progress Note ---
Hospitalist Progress Note - Encounter Date of Encounter: 06/03/18 Time of Encounter: 07:45 - Subjective Interval History: Patient seen and examined resting comfortably in bed. She was on Bipap overnight. She continues to have lower extremity swelling and unchanged chest wall pain s/p fall. Compression hose are in place. - Exam Vitals: Temp Pulse Resp BP Pulse Ox 98.1 F 83 19 105/73 96 06/03/18 04:59 06/03/18 04:59 06/03/18 04:59 06/03/18 04:59 06/03/18 03:40 Exam: General: Alert and oriented 3, no acute distress HEENT: EOMI, pupils equal, round and reactive. Cardiovascular: RRR, Normal S1 & S2, no rubs, murmurs or gallops. Positive reproducible anterior and posterior chest wall pain with palpation Lungs: diminished bibasilar breath sounds Abdomen:Soft, non-tender, no rigidity, normal bowel sounds. Extremities: 2+ pitting edema up to the knees with 1+ pitting edema on the distal thighs bilaterally, blanching erythema of the lower extremities below the calves. Compression hose in place Neurological: Normal cognition and motor skills. Pulses: Carotid and radial pulses normal +2. Psych: Normal mood, normal affect Skin: Warm, decreased blanching erythema of the lower extremities below the calves. - Assessment and Plan (1) Diastolic heart failure Current Visit: Yes Status: Acute Assessment and Plan: Patient was on IV Lasix for lower extremity edema, Lasix was discontinued due to worsening contraction alkalosis. UA was negative for proteinuria. DVT study negative for blood clots. JARAD WNL Echo LVEF 60%, Mild left ventricular diastolic dysfunction, RV size is mildly dilated with mild hypokinesis, Mild-moderate tricuspid regurgitation, Mild pulmonary hypertension. There is a trivial pericardial effusion present. CXR revealed enlarged cardiac silhouette with no convincing acute cardiopulmonary abnormality. CTA chest revealed no evidence of pulmonary embolism and findings of fluid overload including small to moderate right pleural effusion, small left pleural effusion, small pericardial effusion, and anasarca. Patient given one dose of Acetazolamide 06/02/18. Monitor input and output Continue Art hose (2) Respiratory failure Current Visit: Yes Status: Suspected Assessment and Plan: BMP indicates worsening CO2 elevation of > 45. No reports of nausea or vomiting. Patient was not on any diuretics at home. Patient refused ABG, she will need an ABG for home BiPap qualification. VBG showed pCO2 81, encourage BiPap. Suspect chronic hypercapnia in the setting of significant smoking history and possibly undiagnosed COPD. Continue monitoring (3) COPD (chronic obstructive pulmonary disease) Current Visit: Yes Status: Chronic Assessment and Plan: CT chest revealed moderate emphysema. Tiny noncalcified nodules measuring less than 4 mm are nonspecific and could be related to chronic granulomatous disease. Consider follow-up low-dose chest CT in 12 months. Continue bronchodilators (4) Elevated troponin Current Visit: Yes Status: Acute Assessment and Plan: Serial troponins 0.36 --> 0.34 -->0.33. Patient reports chest wall pain s/p fall. Cardiology consult deferred. Echo LVEF 60%, Mild left ventricular diastolic dysfunction, RV size is mildly dilated with mild hypokinesis, Mild-moderate tricuspid regurgitation, Mild pulmonary hypertension. There is a trivial pericardial effusion present. (5) Rib pain on left side Current Visit: Yes Status: Acute Assessment and Plan: Patient reports mechanical fall 3 prior to arrival with trauma to her left rib cage. Review of chest x-ray does not show any report of fracture. Continue pain control (6) Tobacco dependence Current Visit: Yes Status: Chronic Assessment and Plan: Continue Duonebs for wheezing. 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 Tobacco cessation discussed. Nicotine patch ordered. - Time Spent with Patient Total time spent is greater than 50% in coordination of care (as documented) at patient's floor/unit and/or counseling patient: Internal Medicine: Result - Labs CBC & Chem 7: 06/03/18 04:15 06/02/18 05:10 Labs: Short CBC 06/03/18 Range/Units 04:15 WBC 11.8 H (4.3-11.1) K/mcL Hgb 12.4 (11.5-15.4) g/dL Hct 42.6 (35.3-44.9) % Plt Count 207 (140-400) K/mcL Neutrophils # 10.3 H (1.6-8.9) K/mcL - Pulse Oximetry Interpretation Digit-Finger Pulse Oximetry Readin (On BiPap) - Impressions Impressions Chest CTA 06/02/18 10:00 IMPRESSION: 1. No evidence of pulmonary embolism. 2. Findings of fluid overload including small to moderate right pleural effusion, small left pleural effusion, small pericardial effusion, and anasarca. 3. Moderate emphysema. 4. Tiny noncalcified nodules measuring less than 4 mm are nonspecific and could be related to chronic granulomatous disease. Consider follow-up low-dose chest CT in 12 months per the guidelines below. RECOMMENDATIONS: Fleischner Society guidelines for follow-up and management of incidentally detected pulmonary nodules: Multiple Solid Nodules: Nodule size less than 6 mm In a low-risk patient, no routine follow-up. In a high-risk patient, optional CT at 12 months. - Low risk patients include individuals with minimal or absent history of smoking and other known risk factors. - High risk patients include individuals with a history or smoking or known risk factors. Radiology 2017 http://pubs.rsna.org/doi/full/10.1148/radiol.0651449282 D/ / Hernandez Yuen MD / Hernandez Yuen MD Interpreting Provider: Hernandez Yuen MD - VTE Documentation of Mechanical Device: Intermittent pneumatic compression device Consult Discharge Plan - Plan Referrals: Kandy Burgos, [employer] [Primary Care Provider] - (1) Diastolic heart failure Qualifiers: Heart failure chronicity: acute Qualified Code(s): I50.31 - Acute diastolic (congestive) heart failure (2) Respiratory failure Qualifiers: Chronicity: acute on chronic Respiratory failure complication: hypoxia and hypercapnia Qualified Code(s): J96.21 - Acute and chronic respiratory failure with hypoxia; J96.22 - Acute and chronic respiratory failure with hypercapnia (3) COPD (chronic obstructive pulmonary disease) Qualifiers: COPD type: unspecified COPD Qualified Code(s): J44.9 - Chronic obstructive pulmonary disease, unspecified
[2018-06-03] MEDS: predniSONE 20 MG TABLET PO SCH (08:09)
[2018-06-03] MEDS: Nicotine 7 MG PATCH.TD24 TD SCH (08:09)
[2018-06-03] MEDS: *HR* Heparin 5,000 UNIT/ML VIAL SQ SCH ×2 (08:09)
[2018-06-03] MEDS: OXYCODONE Oral CONC 10 MG/0.5 ML ORAL.SYG SL PRN (08:18)
[2018-06-03 08:49] LABS: BUN/Creatinine Ratio 34 (6-26); Blood Urea Nitrogen 23 mg/dL (8-23); Calcium 8.4 mg/dL (8.6-10.3); Carbon Dioxide 43 mEq/L (23-29); Chloride 94 mEq/L (98-107); Glucose 89 mg/dL (70-105); Magnesium 1.6 mg/dL (1.6-2.6); Osmolality,Calculated 287 (280-300); Potassium 4.3 mEq/L (3.5-5.1); Sodium 137 mEq/L (136-145); eGFR For Non-African Americans > 60 (> 60)
[2018-06-03 11:35] VITALS: BP 121/71
[2018-06-03] MEDS ORDERED: hydroCHLOROthiazide 25 MG TABLET PO SCH (12:00)
--- NOTE | 2018-06-03 14:15 | Discharge Summary ---
<Oseas Molina - Last Filed: 06/03/18 14:13> - NOTES TO OUTPATIENT PROVIDER Notes to Outpatient Provider: Patient diagnosed with COPD, acute diastolic CHF, and acute hypoxic and hypercapnic respiratory failure and was started on continuous supplemental oxygen. Patient will need PFTs and a refill on supplemental oxygen. Patient started on hydrochlorothiazide. Date of Encounter: 06/03/18 Time of Encounter: 09:00 - Discharge Diagnosis (1) Diastolic heart failure Priority: Primary Status: Acute Assessment and Plan: Patient was on IV Lasix for lower extremity edema, Lasix was discontinued due to worsening contraction alkalosis. UA was negative for proteinuria. DVT study negative for blood clots. JARAD WNL Echo LVEF 60%, Mild left ventricular diastolic dysfunction, RV size is mildly dilated with mild hypokinesis, Mild-moderate tricuspid regurgitation, Mild pulmonary hypertension. There is a trivial pericardial effusion present. CXR revealed enlarged cardiac silhouette with no convincing acute cardiopulmonary abnormality. CTA chest revealed no evidence of pulmonary embolism and findings of fluid overload including small to moderate right pleural effusion, small left pleural effusion, small pericardial effusion, and anasarca. Patient given one dose of Acetazolamide 06/02/18. Monitor input and output Continue Art hose Qualifiers: Heart failure chronicity: acute Qualified Code(s): I50.31 - Acute diastolic (congestive) heart failure (2) Respiratory failure Priority: Secondary Status: Suspected Assessment and Plan: BMP indicates worsening CO2 elevation of > 45. No reports of nausea or vomiting. Patient was not on any diuretics at home. Patient refused ABG, she will need an ABG for home BiPap qualification. VBG showed pCO2 81, encourage BiPap. Suspect chronic hypercapnia in the setting of significant smoking history and possibly undiagnosed COPD. Continue monitoring Qualifiers: Chronicity: acute on chronic Respiratory failure complication: hypoxia and hypercapnia Qualified Code(s): J96.21 - Acute and chronic respiratory failure with hypoxia; J96.22 - Acute and chronic respiratory failure with hypercapnia (3) Elevated troponin Priority: Secondary Status: Acute Assessment and Plan: Serial troponins 0.36 --> 0.34 -->0.33. Patient reports chest wall pain s/p fall. Cardiology consult deferred. Echo LVEF 60%, Mild left ventricular diastolic dysfunction, RV size is mildly dilated with mild hypokinesis, Mild-moderate tricuspid regurgitation, Mild pulmonary hypertension. There is a trivial pericardial effusion present. (4) Rib pain on left side Priority: Secondary Status: Acute Assessment and Plan: Patient reports mechanical fall 3 prior to arrival with trauma to her left rib cage. Review of chest x-ray does not show any report of fracture. Continue pain control (5) Tobacco dependence Priority: Secondary Status: Chronic Assessment and Plan: Continue Duonebs for wheezing. 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 Tobacco cessation discussed. Nicotine patch ordered. (6) COPD (chronic obstructive pulmonary disease) Priority: Secondary Status: Chronic Assessment and Plan: CT chest revealed moderate emphysema. Tiny noncalcified nodules measuring less than 4 mm are nonspecific and could be related to chronic granulomatous disease. Consider follow-up low-dose chest CT in 12 months. Continue bronchodilators Qualifiers: COPD type: unspecified COPD Qualified Code(s): J44.9 - Chronic obstructive pulmonary disease, unspecified Hospital course: Ms. Moody is a 73 year old female who was diagnosed acute diastolic CHF and acute hypoxic and hypercapnic respiratory failure. CT scan of the chest showed emphysema bilaterally/ COPD likely contributing to her hypoxia and hypercapnia. She qualified for continuous supplemental oxygen. Was receiving Lasix but developed contraction alkalosis and Lasix has held. She was given one time dose of Acetazolamide. Her condition continued to improve and she was discharged with a prescription for hydrochlorothiazide. Patient will need outpatient PFTs and a refill on supplemental oxygen when she follows up with her PCP. Discharge discussed with: patient, nurse, case management - Time Spent with Patient Total time spent providing and/or coordinating discharge services: - Discharge Medications Prescriptions: Ipratropium/Albuterol Neb [Duoneb] 3 ml IH Q4HR PRN #180 inhsol PRN Reason: Dyspnea hydroCHLOROthiazide [Hydrochlorothiazide] 25 mg PO DAILY #30 tablet hydrOXYzine pamoate [HydrOXYzine Pamoate] 25 mg PO TID PRN #30 capsule PRN Reason: Anxiety Nicotine Patch [Nicoderm] 7 mg TD DAILY #30 patch.[email or web address] OXYCODONE Oral CONC [Oxycodone Oral Conc] 5 mg SL Q8H PRN 3 Days #9 oral.syg PRN Reason: Severe Pain predniSONE [PredniSONE] 40 mg PO DAILY #2 tablet Home Medications: Acetaminophen [Tylenol] 650 mg PO Q6HR PRN tablet 06/03/18 [Rx] Ipratropium/Albuterol Neb [Duoneb] 3 ml IH Q4HR PRN #180 inhsol 06/03/18 [Rx] Nicotine Patch [Nicoderm] 7 mg TD DAILY #30 patch.[email or web address] 06/03/18 [Rx] OXYCODONE Oral CONC [Oxycodone Oral Conc] 5 mg SL Q8H PRN 3 Days #9 oral.syg 06/03/18 [Rx] hydrOXYzine pamoate [HydrOXYzine Pamoate] 25 mg PO TID PRN #30 capsule 06/03/18 [Rx] hydroCHLOROthiazide [Hydrochlorothiazide] 25 mg PO DAILY #30 tablet 06/03/18 [Rx] predniSONE [PredniSONE] 40 mg PO DAILY #2 tablet 06/03/18 [Rx] Allergies/Adverse Reactions: Allergy/AdvReac Type Severity Reaction Status Date / Time codeine Allergy Hives Verified 05/30/18 18:58 Date of admission: 06/02/18 14:53 Primary care physician: Kandy Burgos CNP Consults: 05/31/18 00:50 Consult to Nurse Navigator [CONS] Routine Comment: Discharging clinician: Oseas Molina Anticipated date of discharge: 06/03/18 - Constitutional Vitals: Temp Pulse Resp BP Pulse Ox 97.9 F 90 16 121/71 93 06/03/18 08:00 06/03/18 11:30 06/03/18 11:30 06/03/18 11:30 06/03/18 13:58 Exam: General: Alert and oriented 3, no acute distress HEENT: EOMI, pupils equal, round and reactive. Cardiovascular: RRR, Normal S1 & S2, no rubs, murmurs or gallops. Positive reproducible anterior and posterior chest wall pain with palpation Lungs: diminished bibasilar breath sounds Abdomen:Soft, non-tender, no rigidity, normal bowel sounds. Extremities: 2+ pitting edema up to the knees with 1+ pitting edema on the dist al thighs bilaterally, blanching erythema of the lower extremities below the calves. Compression hose in place Neurological: Normal cognition and motor skills. Pulses: Carotid and radial pulses normal +2. Psych: Normal mood, normal affect Skin: Warm, decreased blanching erythema of the lower extremities below the calves. - Patient Status Disposition: Home, Self-Care Functional capacity at discharge: independent ambulation Overall status at discharge: patient is progressing back to baseline - Discharge Instructions Follow Up With: Kandy Burgos CNP [Primary Care Provider] - 06/11/18 10:35 am - Diet and Activity Activity: resume usual activities as tolerated, wear oxygen at all times Diet: other (cardiac) - VTE Documentation of Mechanical Device: Intermittent pneumatic compression device <Maria Luisa Donaldson - Last Filed: 06/03/18 15:41> Date of Encounter: 06/03/18 Time of Encounter: 10:30 - Discharge Diagnosis (1) Elevated troponin Status: Acute (2) Rib pain on left side Status: Acute (3) Tobacco dependence Status: Chronic (4) Diastolic heart failure Status: Acute Qualifiers: Heart failure chronicity: acute Qualified Code(s): I50.31 - Acute diastolic (congestive) heart failure (5) Respiratory failure Status: Suspected Qualifiers: Chronicity: acute on chronic Respiratory failure complication: hypoxia and hypercapnia Qualified Code(s): J96.21 - Acute and chronic respiratory failure with hypoxia; J96.22 - Acute and chronic respiratory failure with hypercapnia (6) COPD (chronic obstructive pulmonary disease) Status: Chronic Qualifiers: COPD type: unspecified COPD Qualified Code(s): J44.9 - Chronic obstructive pulmonary disease, unspecified Hospital course: Ms. Moody is a 73 year old female - Time Spent with Patient Total time spent providing and/or coordinating discharge services: Less than 30 minutes (10 min) Date of admission: 06/02/18 14:53 Primary care physician: Kandy Burgos CNP Consults: 05/31/18 00:50 Consult to Nurse Navigator [CONS] Routine Comment: - Constitutional Vitals: Temp Pulse Resp BP Pulse Ox 97.9 F 90 16 121/71 93 06/03/18 08:00 06/03/18 11:30 06/03/18 11:30 06/03/18 11:30 06/03/18 13:58 General appearance: Present: cooperative, answers questions appropriately - Respiratory Respiratory exam: Present: prolonged expiratory phase, wheezes. Absent: accessory muscle use, rales, rhonchi - GI/Abdominal GI/Abdominal exam: Present: normal bowel sounds, soft, no peritoneal signs. Absent: distended, tenderness - Attending Attestation I saw evaluated and examined this patient and my medical decision-making was reviewed with the Resident Physician, Oseas Molina. I agree with the documented findings, disposition and treatment plan as described except to any changes set forth below. We independently had [id number] contact with the patient. Patient was hospitalized here for acute hypoxic and hypercapnic respiratory failure and acute diastolic congestive heart failure. Patient was placed on O2 supplementation and was given Lasix. However she developed contraction alkalosis which has now improved. Patient does have chronic hypercapnia and would benefit from outpatient sleep study and possible CPAP/BiPAP. For now she did qualify for supplemental oxygen due to her underlying COPD. She will prescribed home oxygen. At this time, she is clinically stable to be discharged home. She did have mild troponin elevation which was adynamic and most likely related to demand ischemia. 2-D echocardiogram done here showed EF of 60% with mild left ventricle and diastolic dysfunction. Patient will need to follow up with her primary care provider and cardiology as outpatient for further management.
== END 2018-06-03 17:47 | disposition home or self-care (01) | DRG 291 ==
LOC: 2NENU → SUATTDRO 23:11
PROVIDERS: ADMIT Internal Medicine; ATTEND Internal Medicine

== ENCOUNTER 2020-03-09 10:39 | Inpatient (IN) ==
[2020-03-09 12:43] LABS: ABG Base Excess -3 mEq/L (-2 to 3); ABG HCO3 30 mEq/L (21-27); ABG Oxygen Saturation 99 % (95-98); ABG PCO2 79 mmHg (35-45); ABG PH 7.18 pH Units (7.32-7.45); ABG PO2 190 mmHg (85-104); ABG TCO2 32 mEq/L (20-26); Blood Gas Modality ASSIST CONTROL; Blood Gas VT 480 cc
[2020-03-09] MEDS ORDERED: Naloxone 0.4 MG/ML INJ IVP PRN (14:08)
[2020-03-09] MEDS ORDERED: 0.9 % Sodium Chloride 1,000 ML IVC ONE ×2 (14:08→15:00)
[2020-03-09] MEDS ORDERED: Azithromycin 500 MG in 0.9 % Sodium Chloride 250 ML IVPB ONE (14:38)
[2020-03-09] MEDS ORDERED: Vancomycin (wt based) 1,000 MG VIAL IVPB SCH (15:00)
[2020-03-09] MEDS ORDERED: Vancomycin 1 EACH in 0.9 % Sodium Chloride 250 ML IVPB SCH (15:00)
[2020-03-09] MEDS: methylPREDNISolone 125 MG/2 ML VIAL IVP SCH ×2 (15:30→22:11)
[2020-03-09] MEDS ORDERED: Artificial Tears SOLN 15 ML BOTTLE BOTH EYES PRN (15:36)
[2020-03-09 16:01] LABS: BUN/Creatinine Ratio 14 (6-26); Blood Urea Nitrogen 29 mg/dL (8-23); Calcium 9.7 mg/dL (8.6-10.3); Carbon Dioxide 19 mEq/L (23-29); Chloride 92 mEq/L (98-107); Glucose 138 mg/dL (70-105); Osmolality,Calculated 290 (280-300); Potassium 4.3 mEq/L (3.5-5.1); Salicylate < 2.5 mg/dL (15.0-30.0); Sodium 136 mEq/L (136-145); eGFR For African Americans 29 (> 60); eGFR For Non-African Americans 24 (> 60)
[2020-03-09] MEDS: Ipratropium/Albuterol Neb 3 ML IH SCH ×3 (16:04→23:38)
[2020-03-09] MEDS: Budesonide/Formoterol 80/4.5 1 PUFF INH IH SCH ×2 (16:05→19:49)
[2020-03-09 16:07] LABS: Creatinine,Urine 104 mg/dL; Sodium, Urine 61.4 mEq/L
[2020-03-09 16:08] LABS: Amphetamine Screen,Urine Negative ng/mL (Cutoff=1000); Barbiturate Screen,Urine Negative ng/mL (Cutoff=200); Benzodiazepines Screen,Urine Negative ng/mL (Cutoff=200); Cannabinoid Screen,Urine Negative ng/mL (Cutoff = 50); Cocaine Screen,Urine Negative ng/mL (Cutoff= 300); Opiate Screen,Urine Negative ng/mL (Cutoff=300); Phencyclidine Screen,Urine Negative ng/mL (Cutoff=25)
[2020-03-09 16:30] LABS: ABG Base Excess -2 mEq/L (-2 to 3); ABG HCO3 29 mEq/L (21-27); ABG Oxygen Saturation 98 % (95-98); ABG PCO2 66 mmHg (35-45); ABG PH 7.25 pH Units (7.32-7.45); ABG PO2 116 mmHg (85-104); ABG TCO2 31 mEq/L (20-26); Blood Gas Modality VC; Blood Gas VT 480 cc
[2020-03-09] MEDS ORDERED: Perflutren Lipid Microsphere 1.3 ML in 0.9 % Sodium Chloride 8.7 ML IVP PRN (16:59)
[2020-03-09] MEDS: Piperacillin/Tazobactam 3.375 GM in 0.9 % Sodium Chloride Mini Bag 100 ML IVPB SCH (17:14)
[2020-03-09] MEDS: Artificial Tears SOLN 15 ML BOTTLE BOTH EYES SCH ×2 (17:39→22:10)
[2020-03-09] MEDS: Ringers Solution, Lactated 1,000 ML IVC SCH (17:40)
[2020-03-09] MEDS: Sodium Bicarbonate 150 MEQ in D5% in Water 1,000 ML IVC SCH ×2 (19:10→23:46)
[2020-03-09] MEDS: *HR* Heparin 5,000 UNIT/ML VIAL SQ SCH (19:10)
[2020-03-09] MEDS: Dexmedetomidine HCl 400 MCG/100 ML MLS IVC SCH (19:10)
[2020-03-09 21:46] LABS: Thyroid Stimulating Hormone 3.148 mcIU/mL (0.340-5.600); Troponin I 0.55 ng/mL (< 0.04)
[2020-03-09] MEDS: Chlorhexidine Rinse 15 ML MOUTHWASH MM SCH (22:11)
[2020-03-09] MEDS: FentaNYL (PF) 1,000 MCG/100 ML IV.SOLN IVC SCH (22:11)
[2020-03-10] MEDS: Piperacillin/Tazobactam 3.375 GM in 0.9 % Sodium Chloride Mini Bag 100 ML IVPB SCH ×4 (00:12→23:54)
[2020-03-10] MEDS: Artificial Tears SOLN 15 ML BOTTLE BOTH EYES SCH ×7 (00:13→23:55)
[2020-03-10] MEDS: Ipratropium/Albuterol Neb 3 ML IH SCH ×6 (03:25→23:42)
[2020-03-10] MEDS: Ringers Solution, Lactated 1,000 ML IVC SCH (03:51)
[2020-03-10] MEDS: methylPREDNISolone 125 MG/2 ML VIAL IVP SCH ×4 (03:51→21:57)
[2020-03-10 04:24] LABS: Albumin 2.9 g/dL (3.5-5.7); Albumin/Globulin Ratio 1.3 (1.1-2.2); Bilirubin,Total 0.8 mg/dL (0.3-1.0); Calcium 7.3 mg/dL (8.6-10.3); Globulin 2.3 g/dL (2.4-3.5); Magnesium 1.3 mg/dL (1.6-2.6); Total Protein 5.2 g/dL (6.4-8.9)
[2020-03-10 04:48] LABS: Basophils % 0.1 %; Mean Corpuscular HGB Conc 32.1 g/dL (31.6-35.5); Monocytes % 3.3 %; Red Cell Distribution Width 18.6 % (11.5-14.5)
[2020-03-10 04:50] LABS: Hematocrit 50.8 % (35.3-44.9); Hemoglobin 16.3 g/dL (11.5-15.4); Immature Granulocytes % 0.6 % (0-4); Immature Platelets 7.3 % (1.1-6.1); Lymphocytes # 0.2 K/mcL (0.6-4.6); Lymphocytes % 1.6 %; Mean Corpuscular Volume 87.3 fL (83.0-100.0); Mean Platelet Volume 10.7 fL (9.4-12.4); Monocytes # 0.4 K/mcL (0.0-1.3); Neutrophils # 12.5 K/mcL (1.6-8.9); Red Blood Count 5.82 M/mcL (3.82-4.97); Segmented Neutrophils % 94.4 %; White Blood Count 13.2 K/mcL (4.3-11.1)
[2020-03-10] MEDS ORDERED: Magnesium Sulfate 1 GM/102 ML PIGGYBACK IVPB ONE (04:51)
[2020-03-10 04:58] LABS: ABG Base Excess 6 mEq/L (-2 to 3); ABG HCO3 35 mEq/L (21-27); ABG Oxygen Saturation 94 % (95-98); ABG PCO2 67 mmHg (35-45); ABG PH 7.33 pH Units (7.32-7.45); ABG PO2 80 mmHg (85-104); ABG TCO2 37 mEq/L (20-26); Blood Gas VT 500 cc
[2020-03-10 05:11] LABS: Platelet Count 89 K/mcL (140-400)
[2020-03-10 05:12] LABS: Anisocytosis 1+ (Not Present); Platelet Estimate Slight Decrease (Normal)
[2020-03-10 05:29] LABS: INR 1.4; Prothrombin Time 16.5 Seconds (9.4-12.1)
[2020-03-10 05:30] LABS: Troponin I 0.4 ng/mL (< 0.04)
[2020-03-10] MEDS: Sodium Bicarbonate 150 MEQ in D5% in Water 1,000 ML IVC SCH ×2 (05:53→05:57)
[2020-03-10] MEDS: *HR* Heparin 5,000 UNIT/ML VIAL SQ SCH ×2 (05:54→17:57)
[2020-03-10] MEDS: Budesonide/Formoterol 80/4.5 1 PUFF INH IH SCH ×2 (07:29→20:22)
[2020-03-10] MEDS: FentaNYL (PF) 1,000 MCG/100 ML IV.SOLN IVC SCH (07:47)
[2020-03-10] MEDS: Chlorhexidine Rinse 15 ML MOUTHWASH MM SCH ×2 (08:39→20:41)
[2020-03-10] MEDS ORDERED: Azithromycin 500 MG in 0.9 % Sodium Chloride 250 ML IVPB SCH (09:00)
[2020-03-10] MEDS ORDERED: Azithromycin 250 MG TABLET PO SCH (09:00)
[2020-03-10 15:03] LABS: Troponin I 0.41 ng/mL (< 0.04)
[2020-03-10 16:02] LABS: Appearance of Body Fluid Cloudy (Clear); Volume of Body Fluid 15 mL
[2020-03-10] MEDS: Dexmedetomidine HCl 400 MCG/100 ML MLS IVC SCH (16:38)
[2020-03-10] MEDS: Doxycycline 100 MG in 0.9 % Sodium Chloride Mini Bag 100 ML IVPB SCH (17:49)
[2020-03-11] MEDS: Artificial Tears SOLN 15 ML BOTTLE BOTH EYES SCH ×2 (02:30→07:55)
[2020-03-11] MEDS: methylPREDNISolone 125 MG/2 ML VIAL IVP SCH ×2 (02:30→07:53)
[2020-03-11] MEDS: Ipratropium/Albuterol Neb 3 ML IH SCH ×6 (04:50→23:59)
[2020-03-11 05:11] LABS: Basophils % 0.1 %; Hemoglobin 15.3 g/dL (11.5-15.4); Lymphocytes % 1.4 %; Segmented Neutrophils % 92.9 %
[2020-03-11 05:13] LABS: Hematocrit 50.5 % (35.3-44.9); Immature Granulocytes % 0.7 % (0-4); Immature Platelets 9.6 % (1.1-6.1); Lymphocytes # 0.2 K/mcL (0.6-4.6); Mean Corpuscular HGB Conc 30.3 g/dL (31.6-35.5); Mean Corpuscular Hemoglobin 27.8 pg (28.0-33.3); Mean Corpuscular Volume 91.8 fL (83.0-100.0); Mean Platelet Volume 11.4 fL (9.4-12.4); Monocytes # 0.8 K/mcL (0.0-1.3); Monocytes % 4.9 %; Neutrophils # 15.1 K/mcL (1.6-8.9); Red Cell Distribution Width 18.6 % (11.5-14.5); White Blood Count 16.3 K/mcL (4.3-11.1)
[2020-03-11 05:16] LABS: INR 1.2; Prothrombin Time 13.4 Seconds (9.4-12.1)
[2020-03-11 05:20] LABS: Platelet Count 71 K/mcL (140-400)
[2020-03-11 05:33] LABS: Albumin 3.4 g/dL (3.5-5.7); Albumin/Globulin Ratio 1.4 (1.1-2.2); Bilirubin,Total 0.9 mg/dL (0.3-1.0); Calcium 8.2 mg/dL (8.6-10.3); Globulin 2.4 g/dL (2.4-3.5); Magnesium 2.1 mg/dL (1.6-2.6); Phosphorous 3.7 mg/dL (2.7-4.5); Total Protein 5.8 g/dL (6.4-8.9)
[2020-03-11] MEDS: *HR* Heparin 5,000 UNIT/ML VIAL SQ SCH ×3 (05:59→20:21)
[2020-03-11] MEDS: Doxycycline 100 MG in 0.9 % Sodium Chloride Mini Bag 100 ML IVPB SCH ×2 (06:00→18:14)
[2020-03-11] MEDS ORDERED: *HR* LORazepam 2 MG/ML VIAL IVP ONE (06:08)
[2020-03-11] MEDS ORDERED: *HR* LORazepam 2 MG/ML VIAL ONE (06:11)
[2020-03-11] MEDS: Budesonide/Formoterol 80/4.5 1 PUFF INH IH SCH ×2 (07:40→20:07)
[2020-03-11] MEDS: Piperacillin/Tazobactam 3.375 GM in 0.9 % Sodium Chloride Mini Bag 100 ML IVPB SCH ×3 (07:53→23:51)
[2020-03-11] MEDS: Chlorhexidine Rinse 15 ML MOUTHWASH MM SCH (07:53)
[2020-03-11] MEDS ORDERED: Aspirin 81 MG TAB.CHEW PO SCH (09:00)
[2020-03-11] MEDS ORDERED: methylPREDNISolone 125 MG/2 ML VIAL IVP SCH (11:00)
[2020-03-11] MEDS ORDERED: Naloxone 0.4 MG/ML INJ IVP PRN (13:18)
[2020-03-11] MEDS ORDERED: Vancomycin 1 EACH in 0.9 % Sodium Chloride 250 ML IVPB SCH (13:18)
[2020-03-11] MEDS ORDERED: Perflutren Lipid Microsphere 1.3 ML in 0.9 % Sodium Chloride 8.7 ML IVP PRN (13:18)
[2020-03-11] MEDS ORDERED: *HR* Heparin 5,000 UNIT/ML VIAL SQ SCH (14:00)
[2020-03-11] MEDS: MethylPREDNISolone 40 MG/ML VIAL IVP SCH (20:15)
[2020-03-11] MEDS: Melatonin 3 MG TABLET PO PRN (23:51)
[2020-03-12 03:35] LABS: Basophils % 0.1 %
[2020-03-12 03:37] LABS: Hematocrit 46.1 % (35.3-44.9); Hemoglobin 14.3 g/dL (11.5-15.4); Immature Platelets 8.6 % (1.1-6.1); Lymphocytes # 0.3 K/mcL (0.6-4.6); Lymphocytes % 1.7 %; Mean Corpuscular Hemoglobin 28.5 pg (28.0-33.3); Mean Corpuscular Volume 91.8 fL (83.0-100.0); Mean Platelet Volume 11.3 fL (9.4-12.4); Monocytes # 0.7 K/mcL (0.0-1.3); Monocytes % 4.3 %; Red Blood Count 5.02 M/mcL (3.82-4.97); Red Cell Distribution Width 18.7 % (11.5-14.5); Segmented Neutrophils % 92.9 %
[2020-03-12 03:47] LABS: Alanine Aminotransferase 107 Units/L (7-52); Albumin 3.2 g/dL (3.5-5.7); Albumin/Globulin Ratio 1.4 (1.1-2.2); Alkaline Phosphatase 39 Units/L (34-104); Aspartate Amino Transferase 42 Units/L (13-39); BUN/Creatinine Ratio 41 (6-26); Bilirubin,Total 1.2 mg/dL (0.3-1.0); Blood Urea Nitrogen 35 mg/dL (8-23); Calcium 8.5 mg/dL (8.6-10.3); Carbon Dioxide 39 mEq/L (23-29); Chloride 93 mEq/L (98-107); Globulin 2.3 g/dL (2.4-3.5); Glucose 109 mg/dL (70-105); Magnesium 1.9 mg/dL (1.6-2.6); Osmolality,Calculated 295 (280-300); Phosphorous 2.4 mg/dL (2.7-4.5); Potassium 3.8 mEq/L (3.5-5.1); Sodium 138 mEq/L (136-145); Total Protein 5.5 g/dL (6.4-8.9); Vancomycin,Random 14 mcg/mL; eGFR For African Americans > 60 (> 60); eGFR For Non-African Americans > 60 (> 60)
[2020-03-12 03:50] LABS: Neutrophils # 13.9 K/mcL (1.6-8.9); Platelet Count 69 K/mcL (140-400)
[2020-03-12] MEDS: Ipratropium/Albuterol Neb 3 ML IH SCH ×5 (03:58→20:19)
[2020-03-12] MEDS: MethylPREDNISolone 40 MG/ML VIAL IVP SCH ×2 (04:43→13:04)
[2020-03-12] MEDS: *HR* Heparin 5,000 UNIT/ML VIAL SQ SCH ×2 (05:38→13:05)
[2020-03-12] MEDS: Doxycycline 100 MG in 0.9 % Sodium Chloride Mini Bag 100 ML IVPB SCH ×2 (05:53→18:32)
[2020-03-12] MEDS: Budesonide/Formoterol 80/4.5 1 PUFF INH IH SCH ×2 (07:34→20:19)
[2020-03-12] MEDS: Piperacillin/Tazobactam 3.375 GM in 0.9 % Sodium Chloride Mini Bag 100 ML IVPB SCH ×2 (09:30→17:29)
[2020-03-12] MEDS: Aspirin 81 MG TAB.CHEW PO SCH (09:32)
[2020-03-12 13:31] LABS: ABG Base Excess 13 mEq/L (-2 to 3); ABG HCO3 43 mEq/L (21-27); ABG Oxygen Saturation 94 % (95-98); ABG PCO2 78 mmHg (35-45); ABG PH 7.35 pH Units (7.32-7.45); ABG PO2 79 mmHg (85-104); ABG TCO2 46 mEq/L (20-26)
[2020-03-12] MEDS ORDERED: Dexmedetomidine HCl 400 MCG/100 ML MLS IVC SCH (16:00)
[2020-03-12] MEDS: Furosemide 40 MG/4 ML VIAL IVP SCH (17:29)
[2020-03-13] MEDS: Ipratropium/Albuterol Neb 3 ML IH SCH ×7 (00:14→23:21)
[2020-03-13] MEDS: Piperacillin/Tazobactam 3.375 GM in 0.9 % Sodium Chloride Mini Bag 100 ML IVPB SCH ×3 (00:25→15:14)
[2020-03-13] MEDS: Doxycycline 100 MG in 0.9 % Sodium Chloride Mini Bag 100 ML IVPB SCH (06:40)
[2020-03-13] MEDS: Budesonide/Formoterol 80/4.5 1 PUFF INH IH SCH ×2 (07:51→19:56)
[2020-03-13] MEDS: Aspirin 81 MG TAB.CHEW PO SCH (08:07)
[2020-03-13] MEDS: MethylPREDNISolone 40 MG/ML VIAL IVP SCH ×2 (08:07→20:18)
[2020-03-13] MEDS: Furosemide 40 MG/4 ML VIAL IVP SCH (08:07)
[2020-03-13 08:47] LABS: Mean Corpuscular HGB Conc 31.8 g/dL (31.6-35.5); Mean Corpuscular Hemoglobin 28.1 pg (28.0-33.3)
[2020-03-13 08:49] LABS: Hematocrit 49.1 % (35.3-44.9); Hemoglobin 15.6 g/dL (11.5-15.4); Immature Platelets 6.6 % (1.1-6.1); Mean Corpuscular Volume 88.5 fL (83.0-100.0); Red Blood Count 5.55 M/mcL (3.82-4.97); Red Cell Distribution Width 18.6 % (11.5-14.5); White Blood Count 11.2 K/mcL (4.3-11.1)
[2020-03-13 08:50] LABS: VBG HCO3 45 mEq/L (21-27); VBG PCO2 55 mmHg (41-51); VBG PH 7.52 pH Units (7.32-7.42); VBG PO2 166 mmHg (25-50)
[2020-03-13 08:51] LABS: INR 1.2; Prothrombin Time 13.8 Seconds (9.4-12.1)
[2020-03-13 09:11] LABS: Alanine Aminotransferase 79 Units/L (7-52); Albumin 3.4 g/dL (3.5-5.7); Albumin/Globulin Ratio 1.4 (1.1-2.2); Alkaline Phosphatase 37 Units/L (34-104); Aspartate Amino Transferase 28 Units/L (13-39); BUN/Creatinine Ratio 41 (6-26); Bilirubin,Direct 0.4 mg/dL (0.0-0.2); Bilirubin,Indirect 1.1 mg/dL (0.0-1.0); Bilirubin,Total 1.5 mg/dL (0.3-1.0); Blood Urea Nitrogen 31 mg/dL (8-23); Calcium 9.1 mg/dL (8.6-10.3); Carbon Dioxide 45 mEq/L (23-29); Chloride 86 mEq/L (98-107); Globulin 2.4 g/dL (2.4-3.5); Glucose 112 mg/dL (70-105); Magnesium 1.6 mg/dL (1.6-2.6); Osmolality,Calculated 291 (280-300); Phosphorous 1.7 mg/dL (2.7-4.5); Potassium 3.3 mEq/L (3.5-5.1); Sodium 137 mEq/L (136-145); Total Protein 5.8 g/dL (6.4-8.9); eGFR For African Americans > 60 (> 60); eGFR For Non-African Americans > 60 (> 60)
[2020-03-13] MEDS ORDERED: Potassium Phosphate 44 MEQ in 0.9 % Sodium Chloride 250 ML IVPB ONE (09:25)
[2020-03-13] MEDS: Doxycycline 100 MG CAPSULE PO SCH (20:17)
[2020-03-13] MEDS: Melatonin 3 MG TABLET PO PRN (20:23)
[2020-03-14] MEDS: Piperacillin/Tazobactam 3.375 GM in 0.9 % Sodium Chloride Mini Bag 100 ML IVPB SCH ×3 (00:18→15:51)
[2020-03-14] MEDS: Ipratropium/Albuterol Neb 3 ML IH SCH ×6 (04:03→23:51)
[2020-03-14] MEDS: Budesonide/Formoterol 80/4.5 1 PUFF INH IH SCH ×2 (07:42→19:55)
[2020-03-14] MEDS: Aspirin 81 MG TAB.CHEW PO SCH (07:52)
[2020-03-14] MEDS: Doxycycline 100 MG CAPSULE PO SCH ×2 (07:52→22:01)
[2020-03-14] MEDS: MethylPREDNISolone 40 MG/ML VIAL IVP SCH ×2 (07:56→22:00)
[2020-03-14 08:31] LABS: Hematocrit 50.2 % (35.3-44.9); Hemoglobin 16.1 g/dL (11.5-15.4); Immature Platelets 8.3 % (1.1-6.1); Mean Corpuscular HGB Conc 32.1 g/dL (31.6-35.5); Mean Corpuscular Hemoglobin 27.5 pg (28.0-33.3); Mean Corpuscular Volume 85.8 fL (83.0-100.0); Mean Platelet Volume 10.4 fL (9.4-12.4); Red Blood Count 5.85 M/mcL (3.82-4.97); Red Cell Distribution Width 19.1 % (11.5-14.5)
[2020-03-14 08:36] LABS: VBG HCO3 45 mEq/L (21-27); VBG PCO2 52 mmHg (41-51); VBG PH 7.55 pH Units (7.32-7.42); VBG PO2 175 mmHg (25-50)
[2020-03-14 08:36] LABS: INR 1.2; Prothrombin Time 14.2 Seconds (9.4-12.1)
[2020-03-14 08:45] LABS: Albumin 3.7 g/dL (3.5-5.7); Albumin/Globulin Ratio 1.5 (1.1-2.2); Bilirubin,Direct 0.4 mg/dL (0.0-0.2); Bilirubin,Indirect 1.6 mg/dL (0.0-1.0); Globulin 2.5 g/dL (2.4-3.5); Magnesium 1.6 mg/dL (1.6-2.6); Phosphorous 1.5 mg/dL (2.7-4.5); Total Protein 6.2 g/dL (6.4-8.9)
[2020-03-14 08:52] LABS: BUN/Creatinine Ratio 34 (6-26); Blood Urea Nitrogen 25 mg/dL (8-23); Calcium 9.4 mg/dL (8.6-10.3); Carbon Dioxide 45 mEq/L (23-29); Chloride 84 mEq/L (98-107); Glucose 152 mg/dL (70-105); Osmolality,Calculated 285 (280-300); Potassium 3.2 mEq/L (3.5-5.1); Sodium 134 mEq/L (136-145); eGFR For African Americans > 60 (> 60); eGFR For Non-African Americans > 60 (> 60)
[2020-03-14] MEDS: Melatonin 3 MG TABLET PO PRN (22:06)
[2020-03-15] MEDS: Piperacillin/Tazobactam 3.375 GM in 0.9 % Sodium Chloride Mini Bag 100 ML IVPB SCH ×2 (01:36→08:36)
[2020-03-15] MEDS: Ipratropium/Albuterol Neb 3 ML IH SCH ×3 (05:16→11:10)
[2020-03-15 06:30] LABS: Immature Granulocytes % 0.3 % (0-4); Lymphocytes % 4.3 %
[2020-03-15 06:32] LABS: Hematocrit 48.9 % (35.3-44.9); Hemoglobin 15.5 g/dL (11.5-15.4); Immature Platelets 7.3 % (1.1-6.1); Lymphocytes # 0.4 K/mcL (0.6-4.6); Mean Corpuscular HGB Conc 31.7 g/dL (31.6-35.5); Mean Corpuscular Hemoglobin 27.5 pg (28.0-33.3); Mean Corpuscular Volume 86.7 fL (83.0-100.0); Mean Platelet Volume 10.2 fL (9.4-12.4); Monocytes # 0.5 K/mcL (0.0-1.3); Monocytes % 4.8 %; Neutrophils # 8.7 K/mcL (1.6-8.9); Red Blood Count 5.64 M/mcL (3.82-4.97); Red Cell Distribution Width 18.9 % (11.5-14.5); Segmented Neutrophils % 90.6 %; White Blood Count 9.6 K/mcL (4.3-11.1)
[2020-03-15 06:33] LABS: Platelet Count 67 K/mcL (140-400)
[2020-03-15 06:58] LABS: Alanine Aminotransferase 48 Units/L (7-52); Albumin 3.3 g/dL (3.5-5.7); Albumin/Globulin Ratio 1.5 (1.1-2.2); Alkaline Phosphatase 39 Units/L (34-104); Aspartate Amino Transferase 24 Units/L (13-39); BUN/Creatinine Ratio 30 (6-26); Bilirubin,Total 1.9 mg/dL (0.3-1.0); Blood Urea Nitrogen 21 mg/dL (8-23); Carbon Dioxide 37 mEq/L (23-29); Chloride 89 mEq/L (98-107); Globulin 2.2 g/dL (2.4-3.5); Glucose 130 mg/dL (70-105); Osmolality,Calculated 281 (280-300); Potassium 3.9 mEq/L (3.5-5.1); Sodium 133 mEq/L (136-145); Total Protein 5.5 g/dL (6.4-8.9); eGFR For African Americans > 60 (> 60); eGFR For Non-African Americans > 60 (> 60)
[2020-03-15] MEDS: Budesonide/Formoterol 80/4.5 1 PUFF INH IH SCH (08:24)
[2020-03-15] MEDS: MethylPREDNISolone 40 MG/ML VIAL IVP SCH (08:38)
[2020-03-15] MEDS: Aspirin 81 MG TAB.CHEW PO SCH (08:42)
[2020-03-15] MEDS: Doxycycline 100 MG CAPSULE PO SCH (08:42)
[2020-03-15 12:24] VITALS: BP 154/109
== END 2020-03-15 15:20 | disposition home health service (06) | DRG 871 ==
LOC: ICNU 12:21 → SUATTDRO 12:21 → 3ANU 03-11 18:02 → 2NNU 03-12 17:10
PROVIDERS: ADMIT Internal Medicine; ATTEND Family Medicine

== ENCOUNTER 2020-05-13 16:57 | Inpatient (IN) ==
[2020-05-13] MEDS ORDERED: Isovue-370 500 ML BOTTLE IVP ONE (17:13)
[2020-05-13] MEDS ORDERED: Morphine Sulfate 2 MG/ML SYRINGE IVP ONE (17:14)
[2020-05-13 17:37] LABS: Basophils # 0.1 K/mcL (0.0-0.2); Basophils % 0.6 %; Eosinophils # 0.2 K/mcL (0.0-0.6); Eosinophils % 0.9 %; Hemoglobin 13.1 g/dL (11.5-15.4); Immature Granulocytes % 0.5 % (0-4); Lymphocytes # 1.3 K/mcL (0.6-4.6); Lymphocytes % 7.3 %; Mean Corpuscular Volume 93.8 fL (83.0-100.0); Mean Platelet Volume 8.6 fL (9.4-12.4); Monocytes # 0.9 K/mcL (0.0-1.3); Monocytes % 5.3 %; Neutrophils # 15.1 K/mcL (1.6-8.9); Platelet Count 443 K/mcL (140-400); Red Blood Count 4.37 M/mcL (3.82-4.97); Red Cell Distribution Width 17.4 % (11.5-14.5); Segmented Neutrophils % 85.4 %; White Blood Count 17.7 K/mcL (4.3-11.1)
[2020-05-13 17:47] LABS: Activated Partial Thrombo Time 23.3 Seconds (26.0-36.0)
[2020-05-13 18:02] LABS: Alanine Aminotransferase 15 Units/L (7-52); Albumin/Globulin Ratio 0.9 (1.1-2.2); Alkaline Phosphatase 82 Units/L (34-104); Aspartate Amino Transferase 16 Units/L (13-39); BUN/Creatinine Ratio 23 (6-26); Bilirubin,Total 0.6 mg/dL (0.3-1.0); Blood Urea Nitrogen 14 mg/dL (8-23); Calcium 8.8 mg/dL (8.6-10.3); Carbon Dioxide 33 mEq/L (23-29); Chloride 97 mEq/L (98-107); Globulin 3.2 g/dL (2.4-3.5); Glucose 114 mg/dL (70-105); Osmolality,Calculated 283 (280-300); Potassium 4.3 mEq/L (3.5-5.1); Sodium 136 mEq/L (136-145); Total Protein 6.2 g/dL (6.4-8.9); eGFR For African Americans > 60 (> 60); eGFR For Non-African Americans > 60 (> 60)
[2020-05-13] MEDS ORDERED: Ondansetron 4 MG/2 ML VIAL IVP PRN (20:36)
[2020-05-13] MEDS ORDERED: Acetaminophen 325 MG TABLET PO PRN (20:36)
[2020-05-13] MEDS ORDERED: Naloxone 0.4 MG/ML INJ IVP PRN (20:36)
[2020-05-13] MEDS ORDERED: Bisacodyl 10 MG RECTAL SUPPOSITORY RC PRN (20:38)
[2020-05-13] MEDS ORDERED: Melatonin 3 MG TABLET PO PRN (21:00)
[2020-05-13 21:36] LABS: Adenovirus Not Detected (Not Detect); Bordetella Pertussis Not Detected (Not Detect); Chlamydophila pneumoniae Not Detected (Not Detect); Coronavirus 229E Not Detected (Not Detect); Coronavirus HKU1 Not Detected (Not Detect); Coronavirus NL63 Not Detected (Not Detect); Coronavirus OC43 Not Detected (Not Detect); Human Metapneumovirus Not Detected (Not Detect); Human Rhinovirus/Enterovirus Not Detected (Not Detect); Influenza A Subtype 2009 H1 Not Detected (Not Detect); Influenza B Not Detected (Not Detect); Mycoplasma pneumoniae Not Detected (Not Detect); Parainfluenza Virus 1 Not Detected (Not Detect); Parainfluenza Virus 2 Not Detected (Not Detect); Parainfluenza Virus 3 Not Detected (Not Detect); Parainfluenza Virus 4 Not Detected (Not Detect); Respiratory Syncytial Virus Not Detected (Not Detect); SARS-CoV-2 Not Detected (Not Detect)
[2020-05-14] MEDS: traZODone 50 MG TABLET PO SCH ×2 (00:32→21:28)
[2020-05-14] MEDS: Sennosides 8.6 MG TABLET PO SCH ×3 (00:32→21:28)
[2020-05-14 02:35] LABS: Basophils # 0.1 K/mcL (0.0-0.2); Basophils % 0.6 %; Eosinophils # 0.3 K/mcL (0.0-0.6); Eosinophils % 2.1 %; Hemoglobin 11.6 g/dL (11.5-15.4); Immature Granulocytes % 0.6 % (0-4); Lymphocytes % 6.4 %; Mean Corpuscular HGB Conc 31.4 g/dL (31.6-35.5); Mean Corpuscular Hemoglobin 29.1 pg (28.0-33.3); Mean Platelet Volume 8.9 fL (9.4-12.4); Monocytes # 1.3 K/mcL (0.0-1.3); Neutrophils # 13.2 K/mcL (1.6-8.9); Platelet Count 407 K/mcL (140-400); Red Blood Count 3.98 M/mcL (3.82-4.97); Red Cell Distribution Width 17.6 % (11.5-14.5); Segmented Neutrophils % 82.3 %; White Blood Count 16.1 K/mcL (4.3-11.1)
[2020-05-14 02:54] LABS: BUN/Creatinine Ratio 24 (6-26); Blood Urea Nitrogen 12 mg/dL (8-23); Calcium 8.7 mg/dL (8.6-10.3); Carbon Dioxide 33 mEq/L (23-29); Chloride 98 mEq/L (98-107); Glucose 104 mg/dL (70-105); Magnesium 1.8 mg/dL (1.6-2.6); Osmolality,Calculated 280 (280-300); Potassium 4.2 mEq/L (3.5-5.1); Sodium 135 mEq/L (136-145); eGFR For African Americans > 60 (> 60); eGFR For Non-African Americans > 60 (> 60)
[2020-05-14] MEDS: *HR* Heparin 5,000 UNIT/ML VIAL SQ SCH ×2 (06:08→19:29)
[2020-05-14] MEDS ORDERED: Ipratropium/Albuterol Neb 3 ML IH PRN (07:10)
[2020-05-14] MEDS: Aspirin 81 MG TAB.CHEW PO SCH (09:53)
[2020-05-14] MEDS: ALPRAZolam 0.5 MG TABLET PO SCH (10:08)
[2020-05-14] MEDS ORDERED: *HR* HYDROmorphone (PF) 1 MG/ML SYRINGE IVP PRN (23:58)
[2020-05-15] MEDS ORDERED: 0.9 % Sodium Chloride 500 ML ONE (01:23)
[2020-05-15] MEDS ORDERED: 0.9 % Sodium Chloride 500 ML IVC PRN ×2 (01:27→22:50)
[2020-05-15] MEDS: *HR* Heparin 5,000 UNIT/ML VIAL SQ SCH ×2 (05:32→22:19)
[2020-05-15 06:14] LABS: Basophils # 0.1 K/mcL (0.0-0.2); Basophils % 0.7 %; Eosinophils # 0.4 K/mcL (0.0-0.6); Eosinophils % 2.3 %; Hemoglobin 11.1 g/dL (11.5-15.4); Immature Granulocytes % 0.5 % (0-4); Lymphocytes # 1.3 K/mcL (0.6-4.6); Lymphocytes % 8.4 %; Mean Corpuscular HGB Conc 31.7 g/dL (31.6-35.5); Mean Corpuscular Hemoglobin 29.4 pg (28.0-33.3); Mean Corpuscular Volume 92.8 fL (83.0-100.0); Mean Platelet Volume 8.6 fL (9.4-12.4); Monocytes # 1.1 K/mcL (0.0-1.3); Monocytes % 7.3 %; Neutrophils # 12.1 K/mcL (1.6-8.9); Platelet Count 359 K/mcL (140-400); Red Blood Count 3.77 M/mcL (3.82-4.97); Red Cell Distribution Width 17.4 % (11.5-14.5); Segmented Neutrophils % 80.8 %
[2020-05-15 06:37] LABS: BUN/Creatinine Ratio 33 (6-26); Blood Urea Nitrogen 18 mg/dL (8-23); Calcium 8.4 mg/dL (8.6-10.3); Carbon Dioxide 32 mEq/L (23-29); Chloride 96 mEq/L (98-107); Glucose 103 mg/dL (70-105); Osmolality,Calculated 278 (280-300); Potassium 4.2 mEq/L (3.5-5.1); Sodium 133 mEq/L (136-145); eGFR For African Americans > 60 (> 60); eGFR For Non-African Americans > 60 (> 60)
[2020-05-15] MEDS: ALPRAZolam 0.5 MG TABLET PO SCH (11:45)
[2020-05-15] MEDS: Sennosides 8.6 MG TABLET PO SCH ×2 (11:45→22:19)
[2020-05-15] MEDS: Aspirin 81 MG TAB.CHEW PO SCH (11:45)
[2020-05-15] MEDS ORDERED: CeFAZolin Syr 2,000MG/20 ML 2,000 MG/20 ML SYRINGE IVPB ONE (15:00)
[2020-05-15] MEDS ORDERED: *HR* FentaNYL (PF) 100 MCG/2 ML VIAL ONE (16:08)
[2020-05-15] MEDS ORDERED: Lidocaine -MPF 2% 2 ML VIAL ONE (16:08)
[2020-05-15] MEDS ORDERED: Ondansetron 4 MG/2 ML VIAL ONE (16:08)
[2020-05-15] MEDS ORDERED: *HR* Rocuronium Bromide 50 MG/5 ML VIAL ONE (16:08)
[2020-05-15] MEDS ORDERED: *HR* Succinylcholine 200 MG/10 ML VIAL IVP ONE (16:08)
[2020-05-15] MEDS ORDERED: Dexamethasone 4 MG/ML VIAL ONE (16:08)
[2020-05-15] MEDS ORDERED: *HR* Propofol 200 MG/20 ML VIAL IVP ONE (16:08)
[2020-05-15] MEDS ORDERED: Lidocaine HCL 4 ML Topical Solution (Laryng-O-Jet Kit Sterile Pak) TP ONE (16:16)
[2020-05-15] MEDS ORDERED: *HR* PHENYLEPHRINE 1,000 MCG/10 ML SYRINGE IVP ONE (18:02)
[2020-05-15] MEDS ORDERED: Albuterol 2.5 MG/3 ML NEBULIZER IH PRN ×2 (20:20→22:50)
[2020-05-15] MEDS: *HR* FentaNYL (PF) 100 MCG/2 ML VIAL IVP PRN ×3 (21:02→21:19)
[2020-05-15] MEDS: traZODone 50 MG TABLET PO SCH (22:19)
[2020-05-15] MEDS ORDERED: *HR* FentaNYL (PF) 100 MCG/2 ML VIAL IVP PRN (22:50)
[2020-05-15] MEDS ORDERED: Melatonin 3 MG TABLET PO PRN (22:50)
[2020-05-15] MEDS ORDERED: Bisacodyl 10 MG RECTAL SUPPOSITORY RC PRN (22:50)
[2020-05-15] MEDS ORDERED: Ondansetron 4 MG/2 ML VIAL IVP PRN (22:50)
[2020-05-15] MEDS ORDERED: Ipratropium/Albuterol Neb 3 ML IH PRN (22:50)
[2020-05-15] MEDS ORDERED: Naloxone 0.4 MG/ML INJ IVP PRN (22:50)
[2020-05-15] MEDS ORDERED: Acetaminophen 325 MG TABLET PO PRN (22:50)
[2020-05-15] MEDS: ceFAZolin 2,000 MG in 0.9 % Sodium Chloride 100 ML IVPB SCH (23:27)
[2020-05-16 01:35] LABS: Basophils # 0.1 K/mcL (0.0-0.2); Basophils % 0.2 %; Hematocrit 38.1 % (35.3-44.9); Hemoglobin 11.7 g/dL (11.5-15.4); Immature Granulocytes % 0.5 % (0-4); Lymphocytes # 0.5 K/mcL (0.6-4.6); Lymphocytes % 1.9 %; Mean Corpuscular HGB Conc 30.7 g/dL (31.6-35.5); Mean Corpuscular Volume 94.3 fL (83.0-100.0); Mean Platelet Volume 8.9 fL (9.4-12.4); Monocytes # 0.3 K/mcL (0.0-1.3); Monocytes % 1.1 %; Neutrophils # 23.3 K/mcL (1.6-8.9); Platelet Count 399 K/mcL (140-400); Red Blood Count 4.04 M/mcL (3.82-4.97); Segmented Neutrophils % 96.3 %
[2020-05-16 01:38] LABS: White Blood Count 24.2 K/mcL (4.3-11.1)
[2020-05-16 01:53] LABS: BUN/Creatinine Ratio 25 (6-26); Blood Urea Nitrogen 14 mg/dL (8-23); Calcium 8.6 mg/dL (8.6-10.3); Carbon Dioxide 28 mEq/L (23-29); Chloride 96 mEq/L (98-107); Glucose 136 mg/dL (70-105); Osmolality,Calculated 279 (280-300); Potassium 4.3 mEq/L (3.5-5.1); Sodium 133 mEq/L (136-145); eGFR For African Americans > 60 (> 60); eGFR For Non-African Americans > 60 (> 60)
[2020-05-16 01:56] LABS: Anisocytosis 1+ (Not Present)
[2020-05-16 01:57] LABS: Hypochromasia Present (Not Present); Platelet Estimate Normal (Normal)
[2020-05-16] MEDS: *HR* Heparin 5,000 UNIT/ML VIAL SQ SCH ×2 (04:40→17:39)
[2020-05-16] MEDS: Aspirin 81 MG TAB.CHEW PO SCH (10:01)
[2020-05-16] MEDS: ALPRAZolam 0.5 MG TABLET PO SCH ×2 (10:01→14:05)
[2020-05-16] MEDS: Sennosides 8.6 MG TABLET PO SCH ×3 (10:01→20:36)
[2020-05-16] MEDS: ceFAZolin 2,000 MG in 0.9 % Sodium Chloride 100 ML IVPB SCH (14:17)
[2020-05-16] MEDS: traZODone 50 MG TABLET PO SCH (20:36)
[2020-05-17 01:52] LABS: Basophils # 0.1 K/mcL (0.0-0.2); Basophils % 0.4 %; Eosinophils # 0.1 K/mcL (0.0-0.6); Eosinophils % 0.5 %; Hematocrit 29.9 % (35.3-44.9); Immature Granulocytes % 0.5 % (0-4); Lymphocytes # 1.9 K/mcL (0.6-4.6); Lymphocytes % 11.3 %; Mean Corpuscular HGB Conc 32.4 g/dL (31.6-35.5); Mean Corpuscular Hemoglobin 30.2 pg (28.0-33.3); Mean Corpuscular Volume 93.1 fL (83.0-100.0); Mean Platelet Volume 8.7 fL (9.4-12.4); Monocytes # 1.5 K/mcL (0.0-1.3); Monocytes % 8.9 %; Neutrophils # 13.3 K/mcL (1.6-8.9); Platelet Count 356 K/mcL (140-400); Red Blood Count 3.21 M/mcL (3.82-4.97); Red Cell Distribution Width 17.2 % (11.5-14.5); Segmented Neutrophils % 78.4 %; White Blood Count 16.9 K/mcL (4.3-11.1)
[2020-05-17 01:53] LABS: Hemoglobin 9.7 g/dL (11.5-15.4)
[2020-05-17] MEDS: *HR* Heparin 5,000 UNIT/ML VIAL SQ SCH ×2 (06:03→17:53)
[2020-05-17] MEDS: Aspirin 81 MG TAB.CHEW PO SCH (08:29)
[2020-05-17] MEDS: Sennosides 8.6 MG TABLET PO SCH ×2 (08:30→20:25)
[2020-05-17] MEDS: ALPRAZolam 0.5 MG TABLET PO SCH (08:30)
[2020-05-17] MEDS ORDERED: Acetaminophen IV 1,000 MG/100 ML BAG IVPB ONE (09:12)
[2020-05-17] MEDS ORDERED: Ringers Solution, Lactated 1,000 ML IVC SCH (13:15)
[2020-05-17] MEDS: levoFLOXacin 750 MG TABLET PO SCH (13:16)
[2020-05-17] MEDS ORDERED: 0.9 % Sodium Chloride 500 ML IV ONE (15:12)
[2020-05-17] MEDS ORDERED: Ketorolac 30 MG/ML VIAL IVP ONE (15:25)
[2020-05-17 15:49] LABS: Hematocrit 30.7 % (35.3-44.9); Hemoglobin 9.7 g/dL (11.5-15.4)
[2020-05-17] MEDS: traZODone 50 MG TABLET PO SCH (20:25)
[2020-05-17] MEDS: Ketorolac 30 MG/ML VIAL IVP PRN (22:02)
[2020-05-18 01:17] LABS: Basophils # 0.1 K/mcL (0.0-0.2); Basophils % 0.4 %; Eosinophils # 0.2 K/mcL (0.0-0.6); Eosinophils % 1.1 %; Hematocrit 27.5 % (35.3-44.9); Hemoglobin 8.9 g/dL (11.5-15.4); Immature Granulocytes % 0.5 % (0-4); Lymphocytes # 1.2 K/mcL (0.6-4.6); Lymphocytes % 7.6 %; Mean Corpuscular HGB Conc 32.4 g/dL (31.6-35.5); Mean Corpuscular Hemoglobin 30.4 pg (28.0-33.3); Mean Corpuscular Volume 93.9 fL (83.0-100.0); Mean Platelet Volume 9.2 fL (9.4-12.4); Monocytes # 1.3 K/mcL (0.0-1.3); Monocytes % 8.5 %; Neutrophils # 12.5 K/mcL (1.6-8.9); Platelet Count 338 K/mcL (140-400); Red Blood Count 2.93 M/mcL (3.82-4.97); Red Cell Distribution Width 16.9 % (11.5-14.5); Segmented Neutrophils % 81.9 %; White Blood Count 15.2 K/mcL (4.3-11.1)
[2020-05-18 01:33] LABS: BUN/Creatinine Ratio 32 (6-26); Blood Urea Nitrogen 20 mg/dL (8-23); Carbon Dioxide 31 mEq/L (23-29); Chloride 100 mEq/L (98-107); Glucose 118 mg/dL (70-105); Magnesium 1.8 mg/dL (1.6-2.6); Osmolality,Calculated 284 (280-300); Potassium 3.8 mEq/L (3.5-5.1); Sodium 135 mEq/L (136-145); eGFR For African Americans > 60 (> 60); eGFR For Non-African Americans > 60 (> 60)
[2020-05-18] MEDS: Ketorolac 30 MG/ML VIAL IVP PRN ×2 (04:26→12:20)
[2020-05-18] MEDS: *HR* Heparin 5,000 UNIT/ML VIAL SQ SCH (05:08)
[2020-05-18 06:25] VITALS: BP 96/60
[2020-05-18] MEDS: Sennosides 8.6 MG TABLET PO SCH (09:00)
[2020-05-18] MEDS: ALPRAZolam 0.5 MG TABLET PO SCH (09:00)
[2020-05-18] MEDS: Aspirin 81 MG TAB.CHEW PO SCH (09:00)
[2020-05-18] MEDS: levoFLOXacin 750 MG TABLET PO SCH (09:00)
[2020-05-18 13:02] LABS: Influenza A PCR Negative (Negative); Influenza B PCR Negative (Negative); Resp. Syncytial Virus PCR Negative (Negative)
[2020-05-18 13:13] LABS: SARS-CoV-2 by PCR (In House) Negative (Negative)
== END 2020-05-18 14:20 | disposition home health service (06) | DRG 521 ==
LOC: 3NENU 16:57 → EMEROOARM 16:57 → SUATTDRO 22:14 → 3NENU 23:37 → SUATTDRO 05-15 13:08
PROVIDERS: ADMIT Internal Medicine; ATTEND Internal Medicine